=== PATIENT | female | born 1990 | race Caucasian/White ===

== ENCOUNTER 2018-06-28 21:25 | Emergency (ER) | payer OTHER ==
[2018-06-28 21:40] VITALS: BMI 20.2
[2018-06-28] MEDS ORDERED: SODIUM CHLORIDE 0.9% 500 ML INFUS.BAG IV ONE (21:49)
[2018-06-28] MEDS ORDERED: MORPHINE SULFATE 2 MG/ML VIAL IVPUSH ONE (21:49)
[2018-06-28] MEDS ORDERED: morphine CARPU-JECT 2 MG/1 ML DISP.SYRIN IVPUSH ONE (21:49)
[2018-06-28] MEDS ORDERED: MORPHINE SULFATE 2 MG/ML VIAL ONE ×3 (21:50→23:50)
--- NOTE | 2018-06-28 21:54 | PDOC ---
History of Present Illness - General History Source: Patient Exam Limitations: No Limitations - History of Present Illness Initial Comments: 06/28/18 22:17 The patient is a 28 year old 7 weeks female, with no significant past medical history, who presents to the emergency department with, 3 hours of vaginal bleeding. As per patient, she received IVF and has been experiencing vaginal bleeding and suprapubic discomfort. She took Tylenol, without relief prompting her visit to the ER. She denies recent fevers, chills, headache or dizziness. She denies recent diarrhea or constipation. She denies recent dysuria, frequency, urgency or hematuria. She denies recent chest pain or shortness of breath. Past surgical history: None reported. Social history: Nonsmoker. Denies EtOH use and recreational drug use. Blood Type: O- <Sergio Moreno - Last Filed: 06/28/18 22:57> <Shaista Shay - Last Filed: 06/29/18 01:40> - General Chief Complaint: Vaginal Bleeding Stated Complaint: ABDOMINAL PAIN 7 WEEKS Time Seen by Provider: 06/28/18 21:43 Past History <Sergio Moreno - Last Filed: 06/28/18 22:57> - Suicide/Smoking/Psychosocial Hx Smoking History: Never smoked Have you smoked in the past 12 months: No Information on smoking cessation initiated: No Hx Alcohol Use: No Drug/Substance Use Hx: No <Shaista Shay - Last Filed: 06/29/18 01:40> - Past Medical History Allergies/Adverse Reactions: Allergies Allergy/AdvReac Type Severity Reaction Status Date / Time No Known Allergies Allergy Verified 06/28/18 22:08 Home Medications: Ambulatory Orders Ibuprofen [Motrin -] 600 mg PO TID #30 tablet 06/29/18 Oxycodone HCl/Acetaminophen [Percocet 5-325 mg Tablet] 1 tab PO Q6H #20 tablet MDD 4 06/29/18 Review of Systems - Review of Systems Able to Perform ROS?: Yes Comments:: 06/28/18 22:17 GENERAL/CONSTITUTIONAL: No fever or chills. No weakness. HEAD, EYES, EARS, NOSE AND THROAT: No change in vision. No ear pain or discharge. No sore throat. CARDIOVASCULAR: No chest pain or shortness of breath. RESPIRATORY: No cough, wheezing, or hemoptysis. GASTROINTESTINAL: No nausea, vomiting, diarrhea or constipation. +GENITOURINARY: Vaginal bleeding. Pelvic discomfort. No dysuria, frequency, or change in urination. MUSCULOSKELETAL: No joint or muscle swelling or pain. No neck or back pain. SKIN: No rash NEUROLOGIC: No headache, vertigo, loss of consciousness, or change in strength/ sensation. ENDOCRINE: No increased thirst. No abnormal weight change. HEMATOLOGIC/LYMPHATIC: No anemia, easy bleeding, or history of blood clots. ALLERGIC/IMMUNOLOGIC: No hives or skin allergy. All Other Systems: Reviewed and Negative <Sergio Moreno - Last Filed: 06/28/18 22:57> *Physical Exam - Vital Signs Last Vital Signs Temp Pulse Resp BP Pulse Ox 99.1 F 91 H 18 116/86 100 06/28/18 21:36 06/28/18 21:36 06/28/18 21:36 06/28/18 21:36 06/28/18 21:36 - Physical Exam Comments: 06/28/18 22:18 GENERAL: Awake, alert, and fully oriented, in no acute distress HEAD: No signs of trauma EYES: PERRLA, EOMI, sclera anicteric, conjunctiva clear ENT: Auricles normal inspection, hearing grossly normal, nares patent, oropharynx clear without exudates. Moist mucosa NECK: Normal ROM, supple, no lymphadenopathy, JVD, or masses LUNGS: Breath sounds equal, clear to auscultation bilaterally. No wheezes, and no crackles HEART: Regular rate and rhythm, normal S1 and S2, no murmurs, rubs or gallops ABDOMEN: Suprapubic discomfort. Soft, normoactive bowel sounds. No guarding, no rebound. No masses EXTREMITIES: Normal range of motion, no edema. No clubbing or cyanosis. No cords, erythema, or tenderness NEUROLOGICAL: Cranial nerves II through XII grossly intact. Normal speech, normal gait SKIN: Warm, Dry, normal turgor, no rashes or lesions noted. <Sergio Moreno - Last Filed: 06/28/18 22:57> - Vital Signs Last Vital Signs Temp Pulse Resp BP Pulse Ox 99.1 F 91 H 18 116/86 100 06/28/18 21:36 06/28/18 21:36 06/28/18 21:36 06/28/18 21:36 06/28/18 21:36 <Shaista Shay - Last Filed: 06/29/18 01:40> Moderate Sedation - Procedure Monitoring Vital Signs: Procedure Monitoring Vital Signs Temperature 99.1 F 06/28/18 21:36 Pulse Rate 91 H 06/28/18 21:36 Respiratory Rate 18 06/28/18 21:36 Blood Pressure 116/86 06/28/18 21:36 O2 Sat by Pulse Oximetry (%) 100 06/28/18 21:36 <Sergio Moreno - Last Filed: 06/28/18 22:57> - Procedure Monitoring Vital Signs: Procedure Monitoring Vital Signs Temperature 99.1 F 06/28/18 21:36 Pulse Rate 91 H 06/28/18 21:36 Respiratory Rate 18 06/28/18 21:36 Blood Pressure 116/86 06/28/18 21:36 O2 Sat by Pulse Oximetry (%) 100 06/28/18 21:36 <Shaista Shay - Last Filed: 06/29/18 01:40> ED Treatment Course - LABORATORY CBC & Chemistry Diagram: 06/28/18 21:50 06/28/18 21:50 - ADDITIONAL ORDERS Additional order review: Laboratory Results 06/28/18 21:50 PT with INR 12.30 INR 1.04 06/28/18 21:50 RBC 3.89 MCV 94.2 MCHC 32.9 RDW 14.3 MPV 7.5 Neutrophils % 63.1 Lymphocytes % 25.7 Monocytes % 9.4 Eosinophils % 1.4 Basophils % 0.4 - Medications Given in the ED: ED Medications Discontinued Medications Generic Name Dose Route Start Last Admin Trade Name Freq PRN Reason Stop Dose Admin Morphine Sulfate 2 mg 06/28/18 21:49 06/28/18 22:09 Morphine Injection - IVPUSH 06/28/18 21:50 2 mg ONCE ONE Administration Sodium Chloride 1,000 ml 06/28/18 21:49 06/28/18 22:09 Normal Saline - IV 06/28/18 21:50 1,000 ml ONCE ONE Administration <Sergio Moreno - Last Filed: 06/28/18 22:57> - LABORATORY CBC & Chemistry Diagram: 06/28/18 21:50 12/23/18 21:50 - RADIOLOGY Radiology Studies Ordered: Category Date Time Status <14WKS US [US] Stat Ultrasound 06/28/18 21:53 Ordered <Shaista Shay - Last Filed: 06/29/18 01:40> Medical Decision Making - Medical Decision Making 06/28/18 23:58 Patient Name: ELICEO VALE THIS IS A PRELIMINARY REPORT FROM [facility] DATE OF SERVICE: 2018-06-28 22:14:59 IMAGES: 63 EXAM: US <14WKS US HISTORY: Threatened COMPARISON: None. FINDINGS: Uterus measures 10.4 cm in length. Endometrium is thickened and heterogeneous. There is an irregularly contoured gestational sac measuring 8 x 6 x 16 mm. This correlates to an estimated gestational age of 5 weeks and 4 days. No anatomy or cardiac activity is identified. There is no adnexal mass or free pelvic fluid IMPRESSION: Single empty gestational sac with irregular contours. Finding may reflect early gestational age, or an abnormal gestational sac. Correlation with clinical dates and beta hCG levels is recommended THIS DOCUMENT HAS BEEN ELECTRONICALLY SIGNED 06/29/18 00:27 Pt tells me now that she had a sono 2 weeks ago that showed a 7 week gestation; 2 days later the babies were being lost; pt bled a bit and she was given rhogam. The docs gave her the option of having pills to speed the miscarriage; but she refused. At the time, she was given Rhogam. Now with more bleeding. Last Bhcg was 22K. Now 16K. Pt comes with pain. Morphine 2mg x 2 given. 06/29/18 00:34 Spoke to b2b sales consultant FAST FOOD SHIFT SUPERVISOR Stephan, who recommends NSAIDS and f/u with IVF doctor. Rho abdiaziz was ordered and pending <Shaista Shay - Last Filed: 06/29/18 01:40> *DC/Admit/Observation/Transfer - Attestations Scribe Attestion: 06/28/18 22:18 Documentation prepared by Sergio Moreno, acting as medical stenographer for Shaista Shay MD. <Sergio Moreno - Last Filed: 06/28/18 22:57> - Discharge Dispostion Decision to Admit order: No <Shaista Shay - Last Filed: 06/29/18 01:40> Diagnosis at time of Disposition: Miscarriage, Rh negative status during - Discharge Dispostion Disposition: HOME Condition at time of disposition: Stable - Prescriptions Prescriptions: Ibuprofen [Motrin -] 600 mg PO TID #30 tablet Oxycodone HCl/Acetaminophen [Percocet 5-325 mg Tablet] 1 tab PO Q6H #20 tablet MDD 4 - Patient Instructions Printed Discharge Instructions: DI for Miscarriage
[2018-06-28 22:04] LABS: BASO % 0.4 % (0-2.0); EOS % 1.4 % (0-4.5); HEMATOCRIT 36.7 % (32.4-45.2); HEMOGLOBIN 12.1 GM/dL (10.7-15.3); LYMPH % 25.7 % (8-40); MCHC 32.9 g/dl (32.0-36.0); MEAN CELL VOLUME 94.2 fl (80-96); MEAN PLT VOLUME 7.5 fl (7.5-11.1); MONO % 9.4 % (3.8-10.2); NEUT % 63.1 % (42.8-82.8); PLATELET COUNT 297 K/MM3 (134-434); RBC 3.89 M/mm3 (3.60-5.2); RDW 14.3 % (11.6-15.6); WHITE BLOOD COUNT 9.5 K/mm3 (4.0-10.0)
[2018-06-28 22:15] LABS: INR 1.04 (0.83-1.09); PROTHROMBIN TIME (PATIENT) 12.3 SEC (9.7-13.0)
[2018-06-28 22:44] LABS: ALBUMIN 3.8 g/dl (3.4-5.0); ALK PHOS 59 U/L (45-117); ANION GAP 6 MMOL/L (8-16); BILIRUBIN,TOTAL 0.2 mg/dL (0.2-1); BLOOD UREA NITROGEN 7 mg/dL (7-18); CALCIUM 8.5 mg/dL (8.5-10.1); CHLORIDE 105 mmol/L (98-107); CO2 25 mmol/L (21-32); CREATININE 0.6 mg/dL (0.55-1.3); GLUCOSE,RANDOM 90 mg/dL (74-106); POTASSIUM 4.4 mmol/L (3.5-5.1); SGOT/AST 28 U/L (15-37); SGPT/ALT 34 U/L (13-61); SODIUM 136 mmol/L (136-145); TOT PROT 7.8 g/dl (6.4-8.2)
[2018-06-28] MEDS ORDERED: RHO(D) IMMUNE GLOBULIN 1,500 UNIT DISP.SYRIN IM ONE (23:59)
[2018-06-29] MEDS ORDERED: morphine CARPU-JECT 2 MG/1 ML DISP.SYRIN IVPUSH ONE ×2 (00:18→11:30)
[2018-06-29] MEDS ORDERED: MORPHINE SULFATE 2 MG/ML VIAL IVPUSH ONE (00:30)
[2018-06-29] MEDS ORDERED: KETOROLAC TROMETHAMINE 30 MG/1 ML VIAL IVPUSH ONE (00:32)
[2018-06-29] MEDS ORDERED: KETOROLAC TROMETHAMINE 30 MG/1 ML VIAL ONE (00:39)
[2018-06-29] MEDS ORDERED: ACETAMINOPHEN 1000 MG/100 ML VIAL (NON FORMULARY) IVPB ONE (01:36)
[2018-06-29] MEDS ORDERED: ACETAMINOPHEN INJECTION 100 ML IVPB ONE (01:47)
[2018-06-29 02:00] VITALS: BP 95/55; PULSE 85; TEMP 98.1
== END 2018-06-29 02:09 | disposition home or self-care (01) ==
LOC: JER 21:25
PROC: 3E0234Z Introduction of Serum, Toxoid and Vaccine into Muscle, Percutaneous Approach (ICD-10-PCS; principal; 2018-06-28)
PROC: 3E033NZ Introduction of Analgesics, Hypnotics, Sedatives into Peripheral Vein, Percutaneous Approach (ICD-10-PCS; 2018-06-28)
PROC: 3E033NZ Introduction of Analgesics, Hypnotics, Sedatives into Peripheral Vein, Percutaneous Approach (ICD-10-PCS; 2018-06-28)
PROC: 3E033NZ Introduction of Analgesics, Hypnotics, Sedatives into Peripheral Vein, Percutaneous Approach (ICD-10-PCS; 2018-06-28)
PROC: 3E033NZ Introduction of Analgesics, Hypnotics, Sedatives into Peripheral Vein, Percutaneous Approach (ICD-10-PCS; 2018-06-28)
PROC: 3E0333Z Introduction of Anti-inflammatory into Peripheral Vein, Percutaneous Approach (ICD-10-PCS; 2018-06-28)
DX: O26.891 Other specified pregnancy related conditions, first trimester (principal); O02.1 Missed abortion; O36.0910 Maternal care for other rhesus isoimmunization, first trimester, not applicable or unspecified; Z3A.01 Less than 8 weeks gestation of pregnancy
CPT/HCPCS: 36415; 76801-TC; 76817-TC; 80053; 84702; 85025; 85610; 86850; 86870; 86900; 86901; 86902; 86999; 99282-25; J0131; J1561

== ENCOUNTER 2019-07-03 09:43 | Inpatient (IN) | payer OTHER ==
[2019-07-03] MEDS ORDERED: SODIUM CHLORIDE 2,041 ML IV ONE (09:57)
[2019-07-03] MEDS ORDERED: ACETAMINOPHEN 1000 MG/100 ML VIAL (NON FORMULARY) IVPB ONE (09:59)
[2019-07-03] MEDS ORDERED: ACETAMINOPHEN INJECTION 100 ML IVPB ONE ×2 (10:19→17:26)
[2019-07-03] MEDS ORDERED: ONDANSETRON 4 MG/2 ML VIAL IVPUSH ONE (10:24)
[2019-07-03] MEDS ORDERED: morphine CARPU-JECT 4 MG/1 ML DISP.SYRIN IVPUSH ONE (10:24)
[2019-07-03 10:27] LABS: VENOUS PC02 42.9 mmHg (38-52); VENOUS PH 7.37 (7.31-7.41)
--- NOTE | 2019-07-03 10:29 | PDOC ---
Documentation entered by Bubba Yo SCRIBE, acting as scribe for Radha Robles MD. Radha Robles MD: This documentation has been prepared by the Srinath terrell Xhesika, SCRIBE, under my direction and personally reviewed by me in its entirety. I confirm that the documentation accurately reflects all work, treatment, procedures, and medical decision making performed by me. History of Present Illness - General Chief Complaint: SIRS, Suspected/Possible Stated Complaint: ABD PAIN Time Seen by Provider: 07/03/19 10:07 History Source: Patient Exam Limitations: No Limitations - History of Present Illness Initial Comments: 07/03/19 10:33 HPI The patient is a 29 year old female, with a PMH of UTI (most recent a few months ago), peritonitis s/p colon resection and SBO who presents to the ED with 3 days of abdominal pain, back pain, and high fever, worsened today. Pt reports nausea, headache, dizziness and watery dairrhea (x 1 episode, self resolved) yesterday. Pt describes her abdominal pain as 20/10 in severity, RLQ >LLQ, radiating to her R lower back, worsened with deep breathing and walking. Pt notes she has been drinking fluids and eating soups, but decreased appetite. Pt notes she has been taking acetaminophen with no relief of symptoms, last dose yesterday. Pt reports her LMP was 06/08/19, usually normal menses, no dysuria/urgency or frequency. Denies chest pain, SOB, palpitation,weakness, V, bladder and bowel problems, focal weakness/paresthesias, leg swelling/pain, rash. No sick contacts or travel. No new changes in medications. No suspicious food intake Allergies: None Past Medical History/PSH: UTI (most recent a few months ago), peritonitis and SBO, bowel resection. Social history: Lives with family. No tobacco, ETOH or drug use. Meds: none Review of systems Constitutional: + fevers. No chills. +decreased appetite, +generalized weakness HEENT: + headache +dizziness. No congestion. No visual/hearing disturbances. CVS: no cp or syncope. Resp: no sob. No cough. Gastrointestinal: + abdominal pain,+ nausea, + diarrhea. +flank pain. No vomiting Genitourinary: no urinary sx, hematuria. no urgency or frequency. no dysuria, no vaginal bleeding or discharge. MUSCULOSKELETAL: No joint pain and swelling. No neck pain. +back pain. SKIN: no redness or skin changes, no discharge, no rash. No wounds. Hematologic: no easy bruising/bleeding. NEUROLOGIC: No headache, dizziness, LOC or altered mental status. No weakness, numbness or tingling. Psych: no anxiety or depression Allergic/Immunologic: no allergies All other systems reviewed and negative, or as documented in HPI. Physical exam General: Malaised appearing. HEENT: NCAT, PERRL, EOMI, clear conjunctiva, anicteric, dry mucus membranes, clear oropharynx, no oral lesions.. Neck: neck supple, FROM Resp: CTAB, normal and even respirations, no respiratory distress CVS: +tachycardic, no murmurs, 2+ peripheral pulses throughout, no peripheral edema Abdomen: +midline vertical surgical scar. + RLQ abdominal tenderness at Mcburney 's point. + R flank tenderness. + R CVA tenderness. + rovsing's sign. +guarding ; no rebound. Neg Lamb's sign Back: + R flank tenderness. + R CVA tenderness. no midline tenderness. : normal external genitalia, no lesions, clear vaginal vault with clear physiologic discharge, no CMT, no adnexal tenderness. Smooth and pink cervix, closed. MSK: no edema, DONOHUE x4, ROM intact. No clubbing or cyanosis. normal bulk and tone. Extremities: no calf tenderness Neuro: alert Psych: Calm and cooperative Skin: warm and well perfused, cap refill <2 sec, normal color, no rash, very warm to palp 07/03/19 11:34 07/03/19 12:27 Past History - Past Medical History Allergies/Adverse Reactions: Allergies Allergy/AdvReac Type Severity Reaction Status Date / Time No Known Allergies Allergy Verified 07/03/19 09:47 Home Medications: Ambulatory Orders NK [No Known Home Medication] 07/03/19 COPD: No Thyroid Disease: No - Immunization History TDAP Vaccination: Yes Immunization Up to Date: Yes - Psycho Social/Smoking Cessation Hx Smoking History: Never smoked Have you smoked in the past 12 months: No Hx Alcohol Use: No Drug/Substance Use Hx: No *Physical Exam - Vital Signs Last Vital Signs Temp Pulse Resp BP Pulse Ox 102.6 F H 118 H 20 110/56 L 100 07/03/19 09:49 07/03/19 10:18 07/03/19 10:18 07/03/19 10:18 07/03/19 10:18 Heart Score/ECG Review #1 ECG reviewed & interpreted by me at: 10:30 General ECG Interpretation: Sinus Rhythm, Normal Intervals 07/03/19 11:35 sinus tachycardia at 112 bpm, normal intervals, normal axis, no st elevations or depressins. ED Treatment Course - LABORATORY CBC & Chemistry Diagram: 07/03/19 10:07 07/03/19 10:07 - RADIOLOGY Radiology Studies Ordered: Category Date Time Status ABDOMEN & PELVIS CT WITH CONTR [CT] Stat CT Scan 07/03/19 10:25 Ordered - Medications Given in the ED: ED Medications Discontinued Medications Generic Name Dose Route Start Last Admin Trade Name Freq PRN Reason Stop Dose Admin Acetaminophen 1,000 mg 07/03/19 09:59 07/03/19 10:23 Ofirmev Injection - IVPB 07/03/19 10:00 1,000 mg ONCE ONE Administration Medical Decision Making - Critical Care Time Total Critical Care Time (minutes): 60 (sepsis, pyelonephritis) Critical Care Statement: The care of this patient involved high complexity decision making to prevent further life threatening deterioration of the patient 's condition and/or to evaluate & treat vital organ system(s) failure or risk of failure. - Medical Decision Making 07/03/19 10:27 Vital Signs Temp Pulse Resp BP Pulse Ox 102.6 F H 118 H 20 110/56 L 100 07/03/19 09:49 07/03/19 10:18 07/03/19 10:18 07/03/19 10:18 07/03/19 10:18 VS with high fever, tachy; normotensive DDx abdominal pain: Renal colic, biliary colic, metabolic/electrolyte derangements. GERD, PUD, esophageal spasm, pancreatitis, hepatitis, constipation , colitis, gastroenteritis, cholecystitis, UTI, pyelonephritis, ileus, SBO, medication side effect, hernia, appendicitis, diverticulitis, mesenteric ischemia. msk strain, mesenteric adenitis, psoas abscess. perforation. abscess. Abdominal pain NEG: No evidence of pancreatitis, AAA, cholecystitis, choledocholithiasis, cholangitis, mesenteric ischemia, small bowel obstruction, diverticulitis, colitis, appendicitis, or pelvic etiolology, sandra lantigua tear , fire sprinkler service technician issues such as ovarian torsion, TOA, or ectopic . Given medications in the ED: IVF, sepsis bolus, 2 liters. zofran, morphine and tylenol for fever. labs and lytes wnl. no wbc ct. LFTs/wnl. Cr function borderline, up to 1.4 likely from dehydration, getting IVF. lactic normal, reassuring, unlikely ischemic or severe sepsis. flu neg blood and urine cultures pending. 07/03/19 11:36 pelvic exam unremarkable, no sig discharge or odor. no tenderness. defer imaging , more appropriate for CT a/p given her RLQ pain with the exam PO contrast indicated given prior peritonitis/bowel resection, complications. 07/03/19 14:43 CT abdomen pelvis revealing 6mm obstructing calculus in the proximal right ureter with inflammatory changes extending to a retrocecal appendix. Unlikely acute appendicitis as this is more likely septic stone. There is also a left- sided adnexal cyst 6.5 cm, bedside is nontender on exam and pelvic exam. associated with TAMIKA and pyelonephritis IV ceftriaxone given, cultures pending Urology consultation with on-call physician, Dr Hernandez, will likely requiring stenting to relieve obstruction given TAMIKA and sepsis/pyelo, OR likely for 7pm, so will call nursing dock supervisor to arrange for OR prep VS improving, defervescing, pain controlled. appropriate for med/surg bed, as she is improving, soft BP (but otherwise healthy, thin, getting hydration and no longer tachy/febrile) admit to hospitalist for acute pyelonephritis/septic stone, IV hydration, fluids , abx, f/u cultures. s/o to Dr Licea, admitting to Dr Lundberg pt and family made aware of impression and plan, agreeable. 07/03/19 15:06 07/03/19 17:26 07/03/19 17:27 Discharge - Discharge Information Problems reviewed: Yes Clinical Impression/Diagnosis: Calculus of proximal right ureter, TAMIKA (acute kidney injury), Pyelonephritis Sepsis Qualifiers: Sepsis type: sepsis due to unspecified organism Sepsis acute organ dysfunction status: unspecified Qualified Code(s): A41.9 - Sepsis, unspecified organism Condition: Guarded - Admission Yes - Follow up/Referral Referrals: ON STAFF,NOT [Primary Care Provider] - - Patient Discharge Instructions - Post Discharge Activity
[2019-07-03] MEDS ORDERED: morphine SULFATE 4 MG/ML VIAL ONE (10:34)
[2019-07-03] MEDS ORDERED: ONDANSETRON 4 MG/2 ML VIAL ONE (10:35)
[2019-07-03 10:36] LABS: BASO % 0.1 % (0-2.0); HEMATOCRIT 37.2 % (32.4-45.2); HEMOGLOBIN 12.3 GM/dL (10.7-15.3); LYMPH % 8.7 % (8-40); MCH 31.4 pg (25.7-33.7); MONO % 9.8 % (3.8-10.2); NEUT % 81.4 % (42.8-82.8); PLATELET COUNT 178 K/MM3 (134-434); RBC 3.92 M/mm3 (3.60-5.2)
[2019-07-03 10:56] LABS: INR 1.42 (0.83-1.09); PROTHROMBIN TIME (PATIENT) 16.8 SEC (9.7-13.0)
[2019-07-03 10:59] LABS: ACTIVATED PTT 34.5 SECONDS (25.2-36.5)
[2019-07-03 11:01] LABS: ALBUMIN 3.4 g/dl (3.4-5.0); BILIRUBIN,TOTAL 0.3 mg/dL (0.2-1); BLOOD UREA NITROGEN 12.8 mg/dL (7-18); CALCIUM 8.2 mg/dL (8.5-10.1); CREATININE 1.4 mg/dL (0.55-1.3); POTASSIUM 4.3 mmol/L (3.5-5.1); TOT PROT 7.3 g/dl (6.4-8.2)
[2019-07-03 11:02] LABS: VENOUS PO2 < 49 mmHg (28-48)
[2019-07-03] MEDS ORDERED: SODIUM CHLORIDE 0.9% 500 ML INFUS.BAG IV ONE (11:44)
[2019-07-03 12:57] LABS: EPI CELLS 9.4 /HPF (0-5/HPF); HYALINE CASTS 25 /lpf (0-8); PH,URINE 5.5 (5.0-8.0); URINE APPEARANCE CLOUDY; URINE BACTERIA 1.7 /hpf (NEGATIVE); URINE BILIRUBIN NEGATIVE (NEGATIVE); URINE COLOR YELLOW; URINE GLUCOSE (UA) NEGATIVE (NEGATIVE); URINE KETONE NEGATIVE (NEGATIVE); URINE LEUK ESTERASE TRACE (NEGATIVE); URINE NITRITE NEGATIVE (NEGATIVE); URINE PROTEIN 2+ (NEGATIVE); URINE RBC 4 /hpf (0-4); URINE UROBILINOGEN 0.2 mg/dL (0.2-1.0); URINE WBC 29 /hpf (0-5)
--- NOTE | 2019-07-03 13:28 | EKG ---
Test Reason : Blood Pressure : / mmHG Vent. Rate : 112 BPM Atrial Rate : 112 BPM P-R Int : 138 ms QRS Dur : 072 ms QT Int : 300 ms P-R-T Axes : 038 -02 040 degrees QTc Int : 409 ms SINUS TACHYCARDIA OTHERWISE NORMAL ECG NO PREVIOUS ECGS AVAILABLE Confirmed by MD LEAH, FRED ([id number]) on 07/03/2019 1:27:52 PM Referred By: Confirmed By:FRED LYNN MD
[2019-07-03] MEDS ORDERED: CEFTRIAXONE 1,000 MG in DEXTROSE 5%-WATER - 50 ML IVPB ONE (14:38)
[2019-07-03] MEDS ORDERED: LACTATED RINGERS SOLUTION 1,000 ML/1,000 ML INFUS.BAG IV SCH (14:45)
[2019-07-03] MEDS ORDERED: CEFTRIAXONE 1 GM/50 ML BAG ONE (14:52)
[2019-07-03] MEDS ORDERED: MORPHINE SULFATE 2 MG/ML VIAL IVPUSH PRN (16:08)
[2019-07-03] MEDS ORDERED: ACETAMINOPHEN 1000 MG/100 ML VIAL (NON FORMULARY) IVPB PRN (16:08)
--- NOTE | 2019-07-03 16:10 | HP ---
CHIEF COMPLAINT: Right lower quadrant/Back pain x 3 days PCP: Alexsander GILLIAM HISTORY OF PRESENT ILLNESS: Pt is a 29 y/o F with a significant past medical history of peritonitis, miscarriage (06/2019) and SBO who presented to [facility] due to severe RLQ abdominal pain and back pain. Pt endorses that her pain commenced 3 days ago while she was eating food. Pain is described as a "20/10" in severity, intermittent, and sharp in nature. Pt has never experienced this type of brennan in the past. Endorses vomiting, nausea, subjective fever, and decreased appetite. States she drinks a lot of water and does not consume a high salt diet. Denies history of nephrolithiasis. PMH Miscarriage 06/28/2019, 2 SBOs, Peritonitis Social: Denies T/A/D SurgHx- 3 abdominal surgeries for Peritonitis, and 2 SBO episodes FamHx- Mother with "chest Cancer. Denies any FH of kidney stones NKDA ER course was notable for: (1) Temp 100.8, BP 92/49 (2) 1 gm Ceftriaxone (3) CTAP--> 6 mm obstructing calculus proximal right ureter w/ inflammatory changes in right kidney HOME MEDICATIONS: Home Medications Medication Instructions Recorded NK [No Known Home Medication] 07/03/19 REVIEW OF SYSTEMS CONSTITUTIONAL: PRESENT: fever, chills, diaphoresis, malaise, loss of appetite, Absent: rhinorrhea, nasal congestion, throat pain, throat swelling, difficulty swallowing, mouth swelling, ear pain, eye pain, visual changes CARDIOVASCULAR: Absent: chest pain, syncope, palpitations, irregular heart rate, lightheadedness , peripheral edema RESPIRATORY: Absent: cough, shortness of breath, dyspnea with exertion, orthopnea, wheezing, stridor, hemoptysis GASTROINTESTINAL: Absent: abdominal pain, abdominal distension, nausea, vomiting, diarrhea, constipation, melena, hematochezia GENITOURINARY: Absent: dysuria, frequency, urgency, hesitancy, hematuria, flank pain, genital pain MUSCULOSKELETAL: PRESENT: back pain SKIN: Absent: rash, itching, pallor HEMATOLOGIC/IMMUNOLOGIC: Absent: easy bleeding, easy bruising, lymphadenopathy, frequent infections ENDOCRINE: Absent: unexplained weight gain, unexplained weight loss, heat intolerance, cold intolerance NEUROLOGIC: Absent: headache, focal weakness or paresthesias, dizziness, unsteady gait, seizure, mental status changes, bladder or bowel incontinence PSYCHIATRIC: Absent: anxiety, depression, suicidal or homicidal ideation, hallucinations. PHYSICAL EXAMINATION Vital Signs - 24 hr 07/03/19 07/03/19 07/03/19 09:49 10:18 10:25 Temperature 102.6 F H Pulse Rate 132 H Pulse Rate [ 118 H Apical] Pulse Rate [ Left Brachial] Respiratory 26 H 20 Rate Blood Pressure 00/00 L Blood Pressure [Left Arm] Blood Pressure 110/56 L [Right Arm] O2 Sat by Pulse 100 100 99 Oximetry (%) 07/03/19 07/03/19 07/03/19 10:31 11:44 12:24 Temperature 100.8 F H Pulse Rate 110 H Pulse Rate [ 98 H 92 H Apical] Pulse Rate [ Left Brachial] Respiratory 20 19 Rate Blood Pressure Blood Pressure 92/49 L [Left Arm] Blood Pressure 95/30 L [Right Arm] O2 Sat by Pulse 100 99 99 Oximetry (%) 07/03/19 07/03/19 07/03/19 13:47 13:50 14:45 Temperature Pulse Rate Pulse Rate [ Apical] Pulse Rate [ 91 H 90 Left Brachial] Respiratory 22 H 18 Rate Blood Pressure Blood Pressure 98/52 L 94/54 L [Left Arm] Blood Pressure [Right Arm] O2 Sat by Pulse 99 99 100 Oximetry (%) 07/03/19 14:59 Temperature 98.6 F Pulse Rate Pulse Rate [ Apical] Pulse Rate [ Left Brachial] Respiratory Rate Blood Pressure Blood Pressure [Left Arm] Blood Pressure [Right Arm] O2 Sat by Pulse Oximetry (%) GENERAL: NAD HEAD: AT/NC EYES: EOMI Sclera Clear EARS, NOSE, THROAT: MMM NECK:Supple. LUNGS: CTAB HEART: RRR S1S2 ABDOMEN: No guarding or rigidity. Abdominal tenderness to deep palpation. . MUSCULOSKELETAL: ++ Right sided CVA tenderness. LOWER EXTREMITIES: No CCE. NEUROLOGICAL: Cranial nerves II-XII intact. PSYCHIATRIC: Cooperative. Good eye contact. Appropriate mood and affect. SKIN: Warm, dry, normal turgor, no rashes or lesions noted, normal capillary refill. Laboratory Results - last 24 hr 07/03/19 07/03/19 07/03/19 10:07 10:07 10:07 WBC RBC Hgb Hct MCV MCH MCHC RDW Plt Count MPV Absolute Neuts (auto) Neutrophils % Lymphocytes % Monocytes % Eosinophils % Basophils % Nucleated RBC % PT with INR 16.80 H INR 1.42 H PTT (Actin FS) 34.5 VBG pH POC VBG pCO2 POC VBG pO2 VBG HCO3 VBG O2 Sat (Juliano) VBG Base Excess Sodium Potassium Chloride Carbon Dioxide Anion Gap BUN Creatinine Est GFR (CKD-EPI)AfAm Est GFR (CKD-EPI)NonAf Random Glucose Lactic Acid Calcium Total Bilirubin AST ALT Alkaline Phosphatase Creatine Kinase Troponin I < 0.02 Total Protein Albumin Urine Color Urine Appearance Urine pH Ur Specific [place] Urine Protein Urine Glucose (UA) Urine Ketones Urine Blood Urine Nitrite Urine Bilirubin Urine Urobilinogen Ur Leukocyte Esterase Urine WBC (Auto) Urine RBC (Auto) Urine Casts (Auto) U Epithel Cells (Auto) Urine Bacteria (Auto) Urine HCG, Qual Influenza A (Rapid) Negative Influenza B (Rapid) Negative Blood Type Antibody Screen 07/03/19 07/03/19 07/03/19 10:07 10:07 10:07 WBC 10.0 RBC 3.92 Hgb 12.3 Hct 37.2 MCV 95.0 MCH 31.4 MCHC 33.0 RDW 15.0 Plt Count 178 D MPV 9.0 D Absolute Neuts (auto) 8.1 H Neutrophils % 81.4 D Lymphocytes % 8.7 D Monocytes % 9.8 Eosinophils % 0.0 D Basophils % 0.1 Nucleated RBC % 0 PT with INR INR PTT (Actin FS) VBG pH POC VBG pCO2 POC VBG pO2 VBG HCO3 VBG O2 Sat (Juliano) VBG Base Excess Sodium 136 Potassium 4.3 Chloride 106 Carbon Dioxide 24 Anion Gap 7 L BUN 12.8 Creatinine 1.4 H Est GFR (CKD-EPI)AfAm 58.70 Est GFR (CKD-EPI)NonAf 50.65 Random Glucose 112 H Lactic Acid Calcium 8.2 L Total Bilirubin 0.3 AST 69 H ALT 88 H Alkaline Phosphatase 72 Creatine Kinase 77 Troponin I Total Protein 7.3 Albumin 3.4 Urine Color Urine Appearance Urine pH Ur Specific [place] Urine Protein Urine Glucose (UA) Urine Ketones Urine Blood Urine Nitrite Urine Bilirubin Urine Urobilinogen Ur Leukocyte Esterase Urine WBC (Auto) Urine RBC (Auto) Urine Casts (Auto) U Epithel Cells (Auto) Urine Bacteria (Auto) Urine HCG, Qual Influenza A (Rapid) Influenza B (Rapid) Blood Type Antibody Screen 07/03/19 07/03/19 07/03/19 10:07 10:07 10:07 WBC RBC Hgb Hct MCV MCH MCHC RDW Plt Count MPV Absolute Neuts (auto) Neutrophils % Lymphocytes % Monocytes % Eosinophils % Basophils % Nucleated RBC % PT with INR INR PTT (Actin FS) VBG pH 7.37 POC VBG pCO2 42.9 POC VBG pO2 < 49 H VBG HCO3 24.1 VBG O2 Sat (Juliano) 32.1 L VBG Base Excess -0.7 Sodium Potassium Chloride Carbon Dioxide Anion Gap BUN Creatinine Est GFR (CKD-EPI)AfAm Est GFR (CKD-EPI)NonAf Random Glucose Lactic Acid 1.6 Calcium Total Bilirubin AST ALT Alkaline Phosphatase Creatine Kinase Troponin I Total Protein Albumin Urine Color Urine Appearance Urine pH Ur Specific [place] Urine Protein Urine Glucose (UA) Urine Ketones Urine Blood Urine Nitrite Urine Bilirubin Urine Urobilinogen Ur Leukocyte Esterase Urine WBC (Auto) Urine RBC (Auto) Urine Casts (Auto) U Epithel Cells (Auto) Urine Bacteria (Auto) Urine HCG, Qual Influenza A (Rapid) Influenza B (Rapid) Blood Type O NEGATIVE Antibody Screen Negative 07/03/19 07/03/19 07/03/19 11:45 11:45 13:59 WBC RBC Hgb Hct MCV MCH MCHC RDW Plt Count MPV Absolute Neuts (auto) Neutrophils % Lymphocytes % Monocytes % Eosinophils % Basophils % Nucleated RBC % PT with INR INR PTT (Actin FS) VBG pH POC VBG pCO2 POC VBG pO2 VBG HCO3 VBG O2 Sat (Juliano) VBG Base Excess Sodium Potassium Chloride Carbon Dioxide Anion Gap BUN Creatinine Est GFR (CKD-EPI)AfAm Est GFR (CKD-EPI)NonAf Random Glucose Lactic Acid 0.9 Calcium Total Bilirubin AST ALT Alkaline Phosphatase Creatine Kinase Troponin I Total Protein Albumin Urine Color Yellow Urine Appearance Cloudy Urine pH 5.5 Ur Specific [place] 1.024 Urine Protein 2+ H Urine Glucose (UA) Negative Urine Ketones Negative Urine Blood Trace Urine Nitrite Negative Urine Bilirubin Negative Urine Urobilinogen 0.2 Ur Leukocyte Esterase Trace Urine WBC (Auto) 29 Urine RBC (Auto) 4 Urine Casts (Auto) 25 U Epithel Cells (Auto) 9.4 Urine Bacteria (Auto) 1.7 Urine HCG, Qual Negative Influenza A (Rapid) Influenza B (Rapid) Blood Type Antibody Screen ASSESSMENT/PLAN: Pt is a 29 y/o F with a significant past medical history of peritonitis and SBO who presented to [facility] due to severe RLQ abdominal pain and back pain. #Sepsis 2/2 Urinary Tract Infection/Stone CTAP--> 6 mm obstructing calculus proximal right ureter with inflammatory changes of the right kidney extending to the retrocecal appendix. Not typical appearance of acute appendicitis but cannot be excluded. most likely these are secondary signs of inflammation. 6.5 cm left adenxal cyst. - BP 92/49, 100.8, with known source of infection. WBC slightly elevated at 10. -Ceftriaxone 1 gm given in ED. Pt also received 2L NS. Will place on standing Ceftriaxone Daily until cultures are finalized. -Urology Consulted. Will take patient tonight for Ureteroscopy with possible Laser lithotripsy and stone basketing w/ stent placement. -Morphine 2 mg Q6H PRN with associated pain scale. Ofirmev for pain 1-5 as well as fever PRN -Will not add flomax at this juncture in light of hypotension and anticipated urological intervention -Urine Cx/Blood Cx -Would be best to received Urine culture after obstruction relieved via Urologist #TAMIKA -Bun/Cr 12.8/1.4 -Will place on standing NS @ 125cc. TAMIKA most likely from hypoperfusion 2/2 sepsis/poor PO intake #FEN -NS@125cc/hr -Monitor Electrolytes -NPO #DVT ppx -SCDs #Dispo -Med-Surg Visit type - Emergency Visit Emergency Visit: Yes Care time: The patient presented to the Emergency Department on the above date and was hospitalized for further evaluation of their emergent condition. - New Patient This patient is new to me today: Yes Date on this admission: 07/03/19 - Critical Care Critical Care patient: No ATTENDING PHYSICIAN STATEMENT I saw and evaluated the patient. I reviewed the resident's note and discussed the case with the resident. I agree with the resident's findings and plan as documented. SUBJECTIVE: OBJECTIVE: ASSESSMENT AND PLAN:
[2019-07-03] MEDS ORDERED: SODIUM CHLORIDE 1,000 ML IV SCH ×2 (16:15→17:29)
--- NOTE | 2019-07-03 17:03 | PN ---
Teaching Attending Note Name of Resident: Danilo Licea ATTENDING PHYSICIAN STATEMENT I saw and evaluated the patient. I reviewed the resident's note and discussed the case with the resident. I agree with the resident's findings and plan as documented. SUBJECTIVE: CC: fever, pain in abd and flank. HPI: 29 y/o lady with h/o peritonitis, SBO x 2, and 3 abdominal surgeries who presented with fever, abd and flank painx 3 days . she noticed intermittent pain in RLQ and LUQ, with radiation to the flank. she had subjective fevers but not measured. she had n/v and 5 watery BMs yesterday. lately pain is constant. OBJECTIVE: NAD, awake, oriented, pleasant. MMM, nl oropharynx Cv: RRR, no MRG, mild bulge in neck veins Lungs: CATB Abd: soft, ND, TTP in RLQ, And LUQ. No rebound tenderness or guarding . + R CVA tenderness. mid line surgical scar. Ext : no edema or erythema. Dp 2+ b/l Neuro: EOMI, round equal pupils, reactive to light. no facial droop, tongue and uvula ar mid line . strength 5/5 in upper andl ower extremities proximally and distally. Ct scan report reviewed. she has 6 mm obstructing stone in R ureter, and surrounding inflammation extending to the area around her appendix. EKG: sinus tachy.? L axis. no ST or TW changes. Qtc 407. ASSESSMENT AND PLAN: 29 y/o lady with h/o peritonitis, SBO x 2, and 3 abdominal surgeries who presented with fever, abd and flank pain x 3 days . she was found to be septic with UTI and obstructing ureteral stone. 1- Sepsis due to pyelonephritis with obstructing R ureteral stone. - this is a urological emergency. the patient is hemodynamically stable for now. her normal BP is in 90s. - case was d/w Dr. Hernandez by MIKAYLA Guadarrama. and to be contacted by our team. - given ceftriaxone . has no h/o UTI or resistant bacteria. cont with ceftriaxone as obstruction is to be relived today. - IVF. carefully as she has distended neck vessels, bu tno crackles , no SOB or CP , or any signs of heart failure - NPO - hold off DVT px - morphine for pain. - will obtain urine cx from post obstruction sample . to be requested from Dr. Hernandez - blood cx pending - stent placement is planned for this evening - patient is agreeable to sx. 2- TAMIKA: due to obstruction and UTI . - cont IVF and stent placement 3- slight transaminitis: likely due to the sepsis. will monitor 4- R adnexal cyst 6.5 cm : f/u as out pt 5- DVT Px : Scds. no Heparin for now .
[2019-07-03] MEDS ORDERED: MORPHINE SULFATE 2 MG/ML VIAL ONE (17:29)
[2019-07-03] MEDS ORDERED: MIDAZOLAM HCL 2 MG/2 ML SINGLE DOSE VIAL ONE (19:33)
[2019-07-03] MEDS ORDERED: PROPOFOL 20 ML ONE (20:07)
[2019-07-03] MEDS ORDERED: ONDANSETRON 4 MG/2 ML VIAL IVPUSH PRN ×2 (20:27→21:21)
[2019-07-03] MEDS ORDERED: LACTATED RINGERS SOLUTION 1,000 ML IV SCH (20:30)
[2019-07-03] MEDS: SODIUM CHLORIDE 1,000 ML IV SCH (21:30)
--- NOTE | 2019-07-03 22:46 | OP ---
DATE OF OPERATION: 07/03/2019 PREOPERATIVE DIAGNOSIS: Right ureteral stone with urosepsis. POSTOPERATIVE DIAGNOSIS: Right ureteral stone with urosepsis. PROCEDURE: Cystoscopy, right retrograde emplacement of right ureteral stent. ATTENDING SURGEON: Manish Hernandez MD [place] ARCHITECT: None. ANESTHESIA: General by LMA. DETAILS OF PROCEDURE: Patient brought into the operating room. Patient had received IV antibiotics in the emergency room. Timeout was performed. SCDs placed on the lower extremities. She was then carefully placed in lithotomy, prepped and draped in the usual sterile fashion. Fluoroscopy revealed evidence of an ileus, the film was not clearly seen. A 23-Ivorian cystoscope was passed through the urethra into the bladder. Bladder itself appeared edematous and consistent with the diagnosis of hemorrhagic cystitis. The right orifice was easily identified and intubated with a sensor wire. Dual- lumen catheter was then placed over the sensor wire and a retrograde performed. This revealed that there appeared to be an obstruction appropriate 2 cm distal to the right UPJ. Dual-lumen catheter was removed and a 6-Ivorian, 26 cm in length, double pigtail catheter was passed over the wire and positioned with the assistance of fluoroscopy such that the proximal end curled in the renal pelvis. As the wire was removed , the distal end was noted to curl in the bladder. A urine specimen had been obtained immediately when the cystoscope was inserted _. There were no complications. Patient tolerated the procedure well, left the OR stable, in satisfactory condition. MD SVETLANA RIZO/[id number] MTDD
[2019-07-04 01:39] VITALS: BMI 21.8
[2019-07-04] MEDS: SODIUM CHLORIDE 1,000 ML IV SCH ×2 (05:14→15:37)
[2019-07-04] MEDS ORDERED: ACETAMINOPHEN 325 MG TABLET (FP) PO ONE (05:52)
[2019-07-04 07:33] LABS: HEMATOCRIT 32.9 % (32.4-45.2); HEMOGLOBIN 10.8 GM/dL (10.7-15.3); LYMPH % 15.9 % (8-40); MCH 31.7 pg (25.7-33.7); MCHC 32.9 g/dl (32.0-36.0); MEAN CELL VOLUME 96.4 fl (80-96); MEAN PLT VOLUME 9.1 fl (7.5-11.1); MONO % 9.2 % (3.8-10.2); NEUT % 74.9 % (42.8-82.8); PLATELET COUNT 164 K/MM3 (134-434); RBC 3.41 M/mm3 (3.60-5.2); RDW 15.6 % (11.6-15.6); WHITE BLOOD COUNT 7.5 K/mm3 (4.0-10.0)
[2019-07-04 07:40] LABS: INR 1.27 (0.83-1.09)
[2019-07-04 07:43] LABS: ACTIVATED PTT 30.1 SECONDS (25.2-36.5)
[2019-07-04 08:00] LABS: ALBUMIN 2.5 g/dl (3.4-5.0); BILIRUBIN,TOTAL 0.8 mg/dL (0.2-1); BLOOD UREA NITROGEN 9.1 mg/dL (7-18); CALCIUM 7.6 mg/dL (8.5-10.1); CREATININE 0.7 mg/dL (0.55-1.3); MAGNESIUM 2.1 mg/dL (1.8-2.4); PHOSPHOROUS 2.8 mg/dL (2.5-4.9); POTASSIUM 4.6 mmol/L (3.5-5.1); TOT PROT 5.8 g/dl (6.4-8.2)
[2019-07-04] MEDS ORDERED: oxyCODONE HCL 5 MG TABLET PO PRN (09:13)
[2019-07-04] MEDS ORDERED: cefTRIAXone SODIUM 1 GM VIAL ONE (09:23)
[2019-07-04] MEDS ORDERED: DEXTROSE 5%-WATER - 50 ML IVPB ONE (09:23)
[2019-07-04] MEDS: CEFTRIAXONE 1 GM in DEXTROSE 5%-WATER - 50 ML IVPB SCH (09:24)
--- NOTE | 2019-07-04 10:06 | PN ---
Progress Note (short form) - Note Progress Note: Anesthesia post op POD#1 S/P Cysto and right ureteral stent under GA. Pat seen and examined. VSS. No apparent post anesthesia complications.
[2019-07-04] MEDS ORDERED: CEFTRIAXONE 1 GM in DEXTROSE 5%-WATER - 50 ML IVPB SCH (15:00)
[2019-07-04] MEDS ORDERED: CEFTRIAXONE 1 GM in DEXTROSE 5%-WATER - 50 ML IVPB ONE (15:00)
--- NOTE | 2019-07-04 15:14 | PN ---
Progress Note (short form) - Note Progress Note: Subjective: No fever or chills. has pain in RLQ. No N/V. feels better. No diarrhea . No SOB Objective: Vital Signs: Last Vital Signs Temp Pulse Resp BP Pulse Ox 97.4 F L 58 L 18 97/57 L 93 L 07/04/19 05:26 07/04/19 05:26 07/04/19 05:26 07/04/19 05:26 07/03/19 21:30 Laboratory Results - last 24 hr 07/03/19 07/04/19 07/04/19 11:45 06:23 06:23 WBC 7.5 RBC 3.41 L Hgb 10.8 Hct 32.9 MCV 96.4 H MCH 31.7 MCHC 32.9 RDW 15.6 Plt Count 164 MPV 9.1 Absolute Neuts (auto) 5.6 Neutrophils % 74.9 Lymphocytes % 15.9 D Monocytes % 9.2 Eosinophils % 0.0 Basophils % 0.0 Nucleated RBC % 0 PT with INR 15.00 H INR 1.27 H PTT (Actin FS) 30.1 Sodium Potassium Chloride Carbon Dioxide Anion Gap BUN Creatinine Est GFR (CKD-EPI)AfAm Est GFR (CKD-EPI)NonAf Random Glucose Calcium Phosphorus Magnesium Total Bilirubin AST ALT Alkaline Phosphatase Total Protein Albumin U Pathogenic Cast Auto None seen 07/04/19 06:23 WBC RBC Hgb Hct MCV MCH MCHC RDW Plt Count MPV Absolute Neuts (auto) Neutrophils % Lymphocytes % Monocytes % Eosinophils % Basophils % Nucleated RBC % PT with INR INR PTT (Actin FS) Sodium 140 Potassium 4.6 Chloride 113 H Carbon Dioxide 23 Anion Gap 5 L BUN 9.1 Creatinine 0.7 Est GFR (CKD-EPI)AfAm 135.70 Est GFR (CKD-EPI)NonAf 117.08 Random Glucose 105 Calcium 7.6 L Phosphorus 2.8 Magnesium 2.1 Total Bilirubin 0.8 AST 51 H ALT 86 H Alkaline Phosphatase 76 Total Protein 5.8 L Albumin 2.5 L U Pathogenic Cast Auto Physical Exam: NAD, awake, oriented, pleasant. MMM minimally bulging neck veins Cv: RRR, no MRG, mild bulge in neck veins Lungs: CATB Abd: soft, ND, TTP in RLQ. No rebound tenderness or guarding . Ext: no edema or erythema. Dp 2+ b/l ASSESSMENT AND PLAN: 29 y/o lady with h/o peritonitis, SBO x 2, and 3 abdominal surgeries who presented with fever, abd and flank pain x 3 days . she was found to be septic with UTI and obstructing ureteral stone. 1- Sepsis due to pyelonephritis with obstructing R ureteral stone. s/p stent placement - sepsis resolved. patient is clinically better - cont ceftriaxone day 2. - cont po oxycodone. increase frequency - urine cx with proteus. sensitivity is pending - follow U cx taken during cystoscopy - cont but decrease IVF - strain all urine - add flomax for now. - Inflammation around the retrocecal appendix are likely due to the urinary inflammation. Suspicion for appendicitis is low. will ask Surgical opinion 2- TAMIKA: due to obstruction and UTI. - resolved. - decrease rate of IVF. 3- Slight transaminitis: likely due to the sepsis. improved . monitor 4- R adnexal cyst 6.5 cm : f/u as out pt 5- DVT Px: Scds. start heparin sq Visit type - Emergency Visit Emergency Visit: Yes ED Registration Date: 07/03/19 Care time: The patient presented to the Emergency Department on the above date and was hospitalized for further evaluation of their emergent condition. - New Patient This patient is new to me today: No - Critical Care Critical Care patient: No
[2019-07-04] MEDS ORDERED: TAMSULOSIN HCL 0.4 MG CAP PO ONE (15:16)
[2019-07-04] MEDS: oxyCODONE HCL 5 MG TABLET PO PRN ×2 (15:36→22:05)
[2019-07-04] MEDS: DOCUSATE SODIUM 100 MG CAPSULE (FP) PO PRN (15:39)
[2019-07-05] MEDS: oxyCODONE HCL 5 MG TABLET PO PRN ×2 (06:25→10:49)
[2019-07-05] MEDS: SODIUM CHLORIDE 1,000 ML IV SCH ×2 (06:26→22:06)
[2019-07-05] MEDS: TAMSULOSIN HCL 0.4 MG CAP PO SCH (08:58)
[2019-07-05 09:27] LABS: ALBUMIN 2.6 g/dl (3.4-5.0); BILIRUBIN,DIRECT 0.1 mg/dL (0.0-0.2); BILIRUBIN,TOTAL 0.3 mg/dL (0.2-1); BLOOD UREA NITROGEN 8.4 mg/dL (7-18); CALCIUM 8.3 mg/dL (8.5-10.1); CREATININE 0.7 mg/dL (0.55-1.3); POTASSIUM 4.8 mmol/L (3.5-5.1); TOT PROT 6.2 g/dl (6.4-8.2)
[2019-07-05] MEDS ORDERED: cefTRIAXone SODIUM 1 GM VIAL ONE (09:42)
[2019-07-05] MEDS ORDERED: DEXTROSE 5%-WATER - 50 ML IVPB ONE (09:42)
[2019-07-05] MEDS: CEFTRIAXONE 1 GM in DEXTROSE 5%-WATER - 50 ML IVPB SCH (09:56)
[2019-07-05] MEDS ORDERED: MIDAZOLAM HCL 2 MG/2 ML SINGLE DOSE VIAL ONE (10:05)
[2019-07-05] MEDS ORDERED: ROCURONIUM BROMIDE 50 MG/5 ML SYRINGE ONE (10:26)
[2019-07-05] MEDS ORDERED: NEOSTIGMINE METHYLSULFATE 0.5 MG/ML - 10 ML MDV ONE (11:46)
--- NOTE | 2019-07-05 11:50 | PN ---
Teaching Attending Note Name of Resident: Ben Valdovinos ATTENDING PHYSICIAN STATEMENT I saw and evaluated the patient. I reviewed the resident's note and discussed the case with the resident. I agree with the resident's findings and plan as documented. SUBJECTIVE: No fever or chills. she feels worse than yesterday. she has pain in her R flank and R sided abd , 10/10 decreased to 8 after oxycodone. OBJECTIVE: NAD, awake, oriented, pleasant. MMM. Cv: RRR, no MRG, mild bulge in neck veins Lungs: CATB Abd: soft, slightly distended, TTP in RLQ, RUQ, and LLQ , and R CVA tenderness. has rebound tenderness in RLQ, + Rofsing. No guarding. Ext: no edema or erythema on upper or lower extremities. ASSESSMENT AND PLAN: 29 y/o lady with h/o peritonitis, SBO x 2, and 3 abdominal surgeries who presented with fever, abd and flank pain x 3 days . she was found to be septic with UTI and obstructing ureteral stone. 1- Sepsis due to pyelonephritis with obstructing R ureteral stone. s/p stent placement - continued and increased pain could be dueto the stent itself,stent complication ( like obstruction, migration, ...), ileus, or the presence of acute appendicitis. - add toradol - cont oxy - obtain KUB - Obtain renal US to evaluate for stent complications - cont flomax - strain all urines. - follow final urine cx ( proteus ) - Today abd exam has rebound tenderness in RLQ, and + Rofsing sign. Initially, suspicion for acute appendicitis was low, but today will evaluate more. Although US might not be helpful, due to retrocecal appendix and bowel gas, will try it first to save Aniyah extra radiation. Will take surgical opinion. cont Ceftriaxone and flagyl. 2- TAMIKA: due to obstruction and UTI. - resolved. - cont IVF. 3- Slight transaminitis: likely due to the sepsis. monitor 4- R adnexal cyst 6.5 cm : f/u as out pt 5- DVT Px: Scds. heparin SQ.
[2019-07-05] MEDS: KETOROLAC TROMETHAMINE 15 MG/ML VIAL IVPB SCH ×2 (13:38→22:04)
--- NOTE | 2019-07-05 14:19 | PN ---
Physical Exam: SUBJECTIVE: Patient seen and examined MIRACLE Endorses having small streaks of blood in urine. Having severe abdominal pain ~8 /10, in RLQ and back. Pt thinks her abd is bloated. Has minimal appetite. No diarrhea OBJECTIVE: Vital Signs Period Temp Pulse Resp BP Sys/Ayoub Pulse Ox Last 24 Hr 97.8 F-99.1 F 77-98 20-20 92-111/63-78 GENERAL: The patient is awake, alert, and fully oriented, in no acute distress. HEAD: NC/AT. No temporal wasting EYES: sclera anicteric, conjunctiva clear and w/o pallor. ENT: Ears normal, nares patent, oropharynx clear without exudates, moist mucous membranes. NECK: Trachea midline, full range of motion, supple. LUNGS: Breath sounds equal, clear to auscultation bilaterally, no wheezes, no crackles, no accessory muscle use. Breathing comfortably on RA HEART: Regular rate and rhythm, S1, S2 without murmur, rub or gallop. ABDOMEN: Well-healed midline surgical scar, well-healed lap-incisional scars. Soft, normoactive bowel sounds, mildly distended, TTP of RLQ. +McBurney's. + Rovsing's. +Psoas's sign. +CVA tenderness EXTREMITIES: 2+ pulses, warm, well-perfused, no edema. NEUROLOGICAL: Normal speech, gait not observed. PSYCH: Normal mood, normal affect. SKIN: Warm, dry, normal turgor, no rashes or lesions noted Laboratory Results - last 24 hr 07/05/19 07:45 Sodium 140 Potassium 4.8 Chloride 112 H Carbon Dioxide 24 Anion Gap 5 L BUN 8.4 Creatinine 0.7 Est GFR (CKD-EPI)AfAm 135.70 Est GFR (CKD-EPI)NonAf 117.08 Random Glucose 80 Calcium 8.3 L Total Bilirubin 0.3 Direct Bilirubin 0.1 AST 45 H ALT 102 H Alkaline Phosphatase 76 Total Protein 6.2 L Albumin 2.6 L Active Medications Generic Name Dose Route Start Last Admin Trade Name Freq PRN Reason Stop Dose Admin Docusate Sodium 100 mg 07/04/19 15:04 07/04/19 15:39 Colace - PO 100 mg BID PRN Administration CONSTIPATION Ceftriaxone Sodium 1 gm/ 50 mls @ 100 mls/hr 07/04/19 10:00 07/05/19 09:56 Dextrose IVPB 100 mls/hr DAILY CHERYL Administration Sodium Chloride 1,000 mls @ 75 mls/hr 07/04/19 15:16 07/05/19 06:26 Normal Saline - IV 75 mls/hr ASDIR CHERYL Administration Metronidazole 500 mg in 100 mls @ 100 mls/hr 07/04/19 16:08 07/05/19 10:48 Flagyl 500mg Premixed Ivpb - IVPB 100 mls/hr Q8H-IV CHERYL Administration Ketorolac Tromethamine 15 mg 07/05/19 12:00 07/05/19 13:38 Toradol Injection - IVPB 07/06/19 11:59 15 mg Q8H CHERYL Administration Ondansetron HCl 4 mg 07/03/19 21:21 Zofran Injection IVPUSH Q6H PRN NAUSEA AND/OR VOMITING Oxycodone HCl 5 mg 07/04/19 15:04 07/05/19 10:49 Roxicodone - PO 5 mg Q4H PRN Administration PAIN LEVEL 6-10 Tamsulosin HCl 0.4 mg 07/05/19 08:30 07/05/19 08:58 Flomax - PO 0.4 mg DAILY@0830 CHERYL Administration ASSESSMENT/PLAN: 29 y/o F with a significant past medical history of peritonitis, SBO, small bowel resection who presented to [facility] due to severe RLQ abdominal pain and back pain. Had initial Tmax 102.6F, HR 132, severe flank pain. Imaging suggesting obstructive 6mm calculus of proximal Right ureter w/ inflammation extending to the retrocecal appendix. Admitted for presumed infection nephrolithiasis. S/p cystocopy w/ double pigtail stent placement(David, ) #Sepsis 2/2 Urinary Tract Infection/Stone --resolved #Right ureteral stone --now s/p ureteral stenting > POD#2 Cystoscopy w/ ureteral stent placement > Tmax 102.6, HR 132 --> afeb, HD stable > CT AP(07/03/19): 6 mm obstructing calculus proximal right ureter with inflammatory changes of the right kidney extending to the retrocecal appendix. Not typical appearance of acute appendicitis but cannot be excluded. most likely these are secondary signs of inflammation. 6.5 cm left adenxal cyst. > UCX(07/03/19): Proteus --pending abx sensitivity > UCX(cystoscopy, 07/03/19): NGTD > BCX(07/03/19): NGTD - ED: s/p Ceftriaxone 1 gm - Abx Regimen: -- Ceftriaxone + Flagyl --Day 3 - Pain Regimen: -- oxycodone 5mg, ketololac(scheduled for 24hs) - Flomax --Day 1 #RLQ pain + inflammatory signs of appendix on CT A/P > CT A/P(07/03/19): inflamm of Right ureter extending to retrocecal appendix > US RUQ(07/05/19): failure to show distended tubular struct - Surgery(Lili) Consult: --agrees w/ Flagyl for empiric appendicitis coverage --doesn't think appendecitis --pt declined offer for interval appendectomy --interval CT A/P as outpt --pt declined offer for interval CT A/P #TAMIKA --likely 2/2 sepesis --resolving > Cr 1.4 --> 0.7 - gentle IVF #transaminitis --improving > AST/ALT : 69/88, 51/86 - cont to monitor #FEN - NS@75cc/hr - Regular Diet #DVT ppx - SCDs - SQH #Dispo - Med-Surg Visit type - Emergency Visit Emergency Visit: No - New Patient This patient is new to me today: No - Critical Care Critical Care patient: No ATTENDING PHYSICIAN STATEMENT I saw and evaluated the patient. I reviewed the resident's note and discussed the case with the resident. I agree with the resident's findings and plan as documented. SUBJECTIVE: OBJECTIVE: ASSESSMENT AND PLAN:
--- NOTE | 2019-07-05 14:32 | CONS ---
DATE OF CONSULTATION: 07/05/2019 REASON FOR CONSULTATION: Abnormal appendix. This is an inpatient consultation. BRIEF HISTORY: This is a 29-year-old female who was admitted to [facility] on July 03 for an obstructing kidney stone and fever. The patient was treated by the service with a stent placement. She had a CAT scan of her abdomen and pelvis, which showed inflammation around her kidney, which extended to a retrocecal appendix. The appendix was not noted to be enlarged. There were no masses noted, and the building repair maintenance supervisor opined that this was unlikely appendicitis and more likely inflammation coming from the kidney. Based on her CAT scan findings, request was made for a surgical evaluation. She was being treated on Rocephin antibiotic. At my request, Flagyl was added. She is currently hungry, and her fevers have resolved. PAST MEDICAL HISTORY: Significant for urinary tract infections. PAST SURGICAL HISTORY: Include an exploratory laparotomy. The patient states it was for peritonitis. She does not know why she had it. She later had a 2nd laparotomy for bowel obstruction from adhesions. In the history and physical, it is mentioned, a partial colectomy; however, the patient did not mention that. MEDICATIONS: She takes no medications. ALLERGIES: She has no known drug allergies. REVIEW OF SYSTEMS: General: Denies fatigue or malaise. Cardiac: Denies chest pain or palpitations. Respiratory: Denies shortness of breath or wheeze. Gastrointestinal: Currently, no nausea, no vomiting, no diarrhea. Genitourinary: Has flank pain. Musculoskeletal: Denies joint pain. Psychiatric: Denies anxiety, depression, or hearing voices. PHYSICAL EXAMINATION: General: This is a thin female in no distress. Vital Signs: She is currently afebrile. HEENT: Her head is normocephalic. Her sclerae anicteric. Neck: Supple. Chest: Clear. Abdomen: Soft, nontender. She has right flank tenderness. Extremities: No edema. LABORATORY: On review of her laboratory, her white blood cell count is 7.5 without a shift. On admission, it was 10 with a shift. Her urinalysis shows trace blood, trace leukocyte esterase, and urine bacteria is noted. She has a proteus species in her urine culture that has grown, and her blood cultures are negative to date. ASSESSMENT: This is a 29-year-old female with flank pain, flank tenderness, initial fever, obstructing stone seen on CAT scan with a stent placed by Urology. There are also inflammatory changes around the kidney, which extend to a retrocecal appendix. Clinically, this is periappendicitis, not acute appendicitis. PLAN: Patient is currently on Rocephin, which would probably treat appendicitis as well as urinary infection especially if you were to add Flagyl coverage. I recommend out of an abundance of caution to treat with Flagyl as well. Patient has been offered interval appendectomy on the slight chance that this was appendicitis, this would possibly prevent a recurrence. She declines. Since the appendix is not abnormal in size, there is little suspicion of there being an appendiceal neoplasm. The patient could also consider repeat CAT scan in 1 months' time to ensure the appendix is completely normal. I have offered to follow her and re-scan her in a month, but she declines that as well. She does not wish to take the additional risk of ionizing radiation in the very unlikely chance that this is appendicitis. At this point, we will place her back on a regular diet. She should be treated for the primary kidney issue. I do not believe she has appendicitis, and I am available for interval appendectomy or repeat imaging if the patient changes her mind; however, her options and her current choice to do no further workup is likely reasonable. DO DYLON PINA/[id number]
[2019-07-05] MEDS: DOCUSATE SODIUM 100 MG CAPSULE (FP) PO PRN (22:05)
[2019-07-05] MEDS: HEPARIN NA (PORCINE) 5,000 UNITS/ML 1ML VIAL SQ SCH (22:06)
[2019-07-06] MEDS: KETOROLAC TROMETHAMINE 15 MG/ML VIAL IVPB SCH (04:19)
[2019-07-06] MEDS: SODIUM CHLORIDE 1,000 ML IV SCH ×2 (04:20→18:41)
[2019-07-06] MEDS: HEPARIN NA (PORCINE) 5,000 UNITS/ML 1ML VIAL SQ SCH ×3 (06:56→22:00)
[2019-07-06 07:47] LABS: HEMATOCRIT 31.1 % (32.4-45.2); HEMOGLOBIN 10.4 GM/dL (10.7-15.3); MCH 31.5 pg (25.7-33.7); MCHC 33.3 g/dl (32.0-36.0); MEAN CELL VOLUME 94.4 fl (80-96); MEAN PLT VOLUME 8.7 fl (7.5-11.1); PLATELET COUNT 225 K/MM3 (134-434); RBC 3.29 M/mm3 (3.60-5.2); RDW 15.6 % (11.6-15.6); WHITE BLOOD COUNT 5.8 K/mm3 (4.0-10.0)
[2019-07-06 08:11] LABS: ALBUMIN 2.7 g/dl (3.4-5.0); BILIRUBIN,TOTAL 0.4 mg/dL (0.2-1); BLOOD UREA NITROGEN 8.7 mg/dL (7-18); CALCIUM 8.5 mg/dL (8.5-10.1); CREATININE 0.6 mg/dL (0.55-1.3); INR 1.13 (0.83-1.09); MAGNESIUM 1.6 mg/dL (1.8-2.4); PHOSPHOROUS 3.5 mg/dL (2.5-4.9); POTASSIUM 4.2 mmol/L (3.5-5.1); PROTHROMBIN TIME (PATIENT) 13.3 SEC (9.7-13.0); TOT PROT 6.4 g/dl (6.4-8.2)
[2019-07-06] MEDS: TAMSULOSIN HCL 0.4 MG CAP PO SCH (08:32)
[2019-07-06] MEDS ORDERED: DEXTROSE 5%-WATER - 50 ML IVPB ONE (09:28)
[2019-07-06] MEDS ORDERED: cefTRIAXone SODIUM 1 GM VIAL ONE (09:28)
[2019-07-06] MEDS: CEFTRIAXONE 1 GM in DEXTROSE 5%-WATER - 50 ML IVPB SCH (11:01)
[2019-07-06] MEDS: POLYETHYLENE GLYCOL 3350 119 GM BTL PO SCH (11:32)
--- NOTE | 2019-07-06 15:23 | CONS ---
DATE OF CONSULTATION: 07/06/2019 The patient was seen on the July 03, at which time she was brought to the OR for an obstructing stone and a history of fever. Since the stent was placed, the patient's temperature has trended to normal and her white count has come down, the most recent one being 5800. The patient seems comfortable. My suggestion would be that the patient can be discharged on an antibiotic appropriate for the proteus which grew out on her urine culture. She should be maintained on this for 10 days. I will arrange for outpatient evaluation for possible ureteroscopy and/or removal of the stent. No further intervention is warranted at this present time. MD SVETLANA RIZO/[id number]
[2019-07-06] MEDS ORDERED: KETOROLAC TROMETHAMINE 15 MG/ML VIAL IVPUSH PRN (16:45)
[2019-07-06] MEDS ORDERED: oxyCODONE HCL 5 MG TABLET PO PRN (16:46)
[2019-07-06] MEDS ORDERED: MAGNESIUM SULF 50% (8.12 MEQ/2 ML-1 GM VIAL) IVPB ONE (17:55)
--- NOTE | 2019-07-06 18:03 | PN ---
Teaching Attending Note Name of Resident: Ben Valdovinos ATTENDING PHYSICIAN STATEMENT I saw and evaluated the patient. I reviewed the resident's note and discussed the case with the resident. I agree with the resident's findings and plan as documented. SUBJECTIVE: seen around 11 am No fever or chills. Cont to have RLQ abd pain. No Nausea. no vomiting. OBJECTIVE: NAD, awake, oriented, pleasant. MMM. Cv: RRR, no MRG, mild bulge in neck veins Lungs: CATB Abd: soft, ND, TTP in RLQ, RUQ, and R CVA tenderness. has rebound tenderness in RLQ, + Rofsing. No guarding. Ext: no edema or erythema on upper or lower extremities. ASSESSMENT AND PLAN: 29 y/o lady with h/o peritonitis, SBO x 2, and 3 abdominal surgeries who presented with fever, abd and flank pain x 3 days . she was found to be septic with UTI and obstructing ureteral stone. 1- Sepsis due to pyelonephritis with obstructing R ureteral stone. s/p stent placement. - cont flomax - strain all urines. - follow final urine cx ( proteus ) - due to the initial CT finding ( edema around appendix) , and to the + Rofsing , and rebound tenderness . will get reepat CT of Abd/pelvis to evaluate appendix. patient agrees to be exposed to radiation again 2- TAMIKA: due to obstruction and UTI. - resolved. - can dc IVF in am 3- Slight transaminitis: likely due to the sepsis. monitor 4- R adnexal cyst 6.5 cm : f/u as out pt 5- DVT Px: Scds. heparin SQ. 7- replete Mg
--- NOTE | 2019-07-06 18:26 | PN ---
Physical Exam: SUBJECTIVE: Patient seen and examined NAEON. RLQ abd pain improved, thinks 5/10 from 8/10 yesterday. Thinks distension has improved. Has bright red blood in urine. Little appetite but tolerated ~50% breakfast. OBJECTIVE: Vital Signs Period Temp Pulse Resp BP Sys/Ayoub Pulse Ox Last 24 Hr 98.0 F-98.4 F 56-75 20-20 120-135/68-86 GENERAL: The patient is awake, alert, and fully oriented, in no acute distress. HEAD: NC/AT. No temporal wasting EYES: sclera anicteric, conjunctiva clear and w/o pallor. ENT: Ears normal, nares patent, oropharynx clear without exudates, moist mucous membranes. NECK: Trachea midline, full range of motion, supple. LUNGS: Breath sounds equal, clear to auscultation bilaterally, no wheezes, no crackles, no accessory muscle use. Breathing comfortably on RA HEART: Regular rate and rhythm, S1, S2 without murmur, rub or gallop. ABDOMEN: Well-healed midline surgical scar, well-healed lap-incisional scars. Soft, normoactive bowel sounds, nondistended, mild TTP of RLQ. -McBurney's. - Rovsing's. +Rebound. +CVA tenderness EXTREMITIES: 2+ pulses, warm, well-perfused, no edema. NEUROLOGICAL: Normal speech, gait not observed. PSYCH: Normal mood, normal affect. SKIN: Warm, dry, normal turgor, no rashes or lesions noted Laboratory Results - last 24 hr 07/06/19 07/06/19 07/06/19 06:41 06:41 06:41 WBC 5.8 RBC 3.29 L Hgb 10.4 L Hct 31.1 L MCV 94.4 MCH 31.5 MCHC 33.3 RDW 15.6 Plt Count 225 D MPV 8.7 PT with INR 13.30 H INR 1.13 H Sodium 141 Potassium 4.2 Chloride 109 H Carbon Dioxide 26 Anion Gap 6 L BUN 8.7 Creatinine 0.6 Est GFR (CKD-EPI)AfAm 142.76 Est GFR (CKD-EPI)NonAf 123.17 Random Glucose 84 Calcium 8.5 Phosphorus 3.5 Magnesium 1.6 L Total Bilirubin 0.4 AST 38 H ALT 89 H Alkaline Phosphatase 79 Total Protein 6.4 Albumin 2.7 L Active Medications Generic Name Dose Route Start Last Admin Trade Name Freq PRN Reason Stop Dose Admin Docusate Sodium 100 mg 07/04/19 15:04 07/05/19 22:05 Colace - PO 100 mg BID PRN Administration CONSTIPATION Heparin Sodium (Porcine) 5,000 unit 07/05/19 22:00 07/06/19 13:40 Heparin - SQ 5,000 unit TID CHERYL Administration Ceftriaxone Sodium 1 gm/ 50 mls @ 100 mls/hr 07/04/19 10:00 07/06/19 11:01 Dextrose IVPB 100 mls/hr DAILY CHERYL Administration Sodium Chloride 1,000 mls @ 75 mls/hr 07/04/19 15:16 07/06/19 04:20 Normal Saline - IV Not Given ASDIR CHERYL Metronidazole 500 mg in 100 mls @ 100 mls/hr 07/04/19 16:08 07/06/19 11:01 Flagyl 500mg Premixed Ivpb - IVPB 100 mls/hr Q8H-IV CHERYL Administration Ketorolac Tromethamine 15 mg 07/06/19 16:45 Toradol Injection - IVPUSH 07/11/19 16:44 Q6H PRN PAIN LEVEL 4 - 6 Ondansetron HCl 4 mg 07/03/19 21:21 Zofran Injection IVPUSH Q6H PRN NAUSEA AND/OR VOMITING Oxycodone HCl 5 mg 07/06/19 16:46 Roxicodone - PO Q4H PRN PAIN LEVEL 7 - 10 Polyethylene Glycol 17 gm 07/06/19 11:15 07/06/19 11:32 Miralax (For Daily Use) - PO 17 grams DAILY CHERYL Administration Senna 1 tab 07/06/19 22:00 Senna - PO HS CHERYL Tamsulosin HCl 0.4 mg 07/05/19 08:30 07/06/19 08:32 Flomax - PO 0.4 mg DAILY@0830 CHERYL Administration ASSESSMENT/PLAN: 29 y/o F with a significant past medical history of peritonitis, SBO, small bowel resection who presented to [facility] due to severe RLQ abdominal pain and back pain. Had initial Tmax 102.6F, HR 132, severe flank pain. Imaging suggesting obstructive 6mm calculus of proximal Right ureter w/ inflammation extending to the retrocecal appendix. Admitted for presumed infection nephrolithiasis. S/p cystocopy w/ double pigtail stent placement(David, ). Evaluated by Surg(Lili) for inflammation of appendicitis and retained PO contrast in appendix. Surg did not think contrast was significant, as the appendix has low excretory rate. CT A/P ordered to reevaluate for RLQ inflammation #Sepsis 2/2 Urinary Tract Infection/Stone --resolved #Right ureteral stone --now s/p ureteral stenting > POD#3 Cystoscopy w/ ureteral stent placement > Tmax 102.6, HR 132 --> afeb, HD stable > CT AP(07/03/19): 6 mm obstructing calculus proximal right ureter with inflammatory changes of the right kidney extending to the retrocecal appendix. Not typical appearance of acute appendicitis but cannot be excluded. most likely these are secondary signs of inflammation. 6.5 cm left adenxal cyst. > UCX(07/03/19): Proteus --pending abx sensitivity > UCX(cystoscopy, 07/03/19): NGTD > BCX(07/03/19): NGTD - ED: s/p Ceftriaxone 1 gm - Abx Regimen: -- Ceftriaxone + Flagyl --Day 4 - Pain Regimen: -- oxycodone 5mg PRN, ketololac PRN - Flomax --Day 2 - Urology(David) consulted: -- abx for UTI x10d #RLQ pain + inflammatory signs of appendix on CT A/P --pain improving > CT A/P(07/03/19): inflamm of Right ureter extending to retrocecal appendix > US RUQ(07/05/19): failure to show distended tubular struct > CT A/P(07/06/19) --read pending - Surgery(Lili) Consult: --agrees w/ Flagyl for empiric appendicitis coverage --doesn't think appendecitis --pt declined offer for interval appendectomy --interval CT A/P as outpt --pt declined offer for interval CT A/P #TAMIKA --likely 2/2 sepesis --resolving > Cr 1.4 --> 0.6 - gentle IVF #transaminitis --improving > AST/ALT : 69/88, 51/86, 38/89 - cont to monitor #FEN - NS@75cc/hr - Regular Diet #DVT ppx - SCDs - SQH #Dispo - Med-Surg Visit type - Emergency Visit Emergency Visit: No - New Patient This patient is new to me today: No - Critical Care Critical Care patient: No ATTENDING PHYSICIAN STATEMENT I saw and evaluated the patient. I reviewed the resident's note and discussed the case with the resident. I agree with the resident's findings and plan as documented. SUBJECTIVE: OBJECTIVE: ASSESSMENT AND PLAN:
[2019-07-06] MEDS ORDERED: SODIUM CHLORIDE 1,000 ML IV SCH (19:45)
[2019-07-06] MEDS ORDERED: SENNOSIDES 8.6MG TABLET (FP) PO SCH (22:00)
[2019-07-07] MEDS: HEPARIN NA (PORCINE) 5,000 UNITS/ML 1ML VIAL SQ SCH ×2 (05:52→14:00)
[2019-07-07 08:29] LABS: HEMATOCRIT 31.9 % (32.4-45.2); HEMOGLOBIN 10.6 GM/dL (10.7-15.3); MCH 31.1 pg (25.7-33.7); MCHC 33.2 g/dl (32.0-36.0); MEAN CELL VOLUME 93.8 fl (80-96); PLATELET COUNT 225 K/MM3 (134-434); RDW 15.2 % (11.6-15.6); WHITE BLOOD COUNT 5.5 K/mm3 (4.0-10.0)
[2019-07-07 08:57] LABS: ALBUMIN 2.8 g/dl (3.4-5.0); BILIRUBIN,TOTAL 0.4 mg/dL (0.2-1); CALCIUM 8.7 mg/dL (8.5-10.1); CREATININE 0.6 mg/dL (0.55-1.3); PHOSPHOROUS 4.2 mg/dL (2.5-4.9); POTASSIUM 4.6 mmol/L (3.5-5.1); TOT PROT 6.5 g/dl (6.4-8.2)
--- NOTE | 2019-07-07 09:05 | PN ---
Teaching Attending Note Name of Resident: Ben Valdovinos ATTENDING PHYSICIAN STATEMENT I saw and evaluated the patient. I reviewed the resident's note and discussed the case with the resident. I agree with the resident's findings and plan as documented. SUBJECTIVE: Patient is doing better with no acute distress, no further pain, no fever or chills. OBJECTIVE: Vital Signs Temperature 97.9 F 07/07/19 05:40 Pulse Rate 60 07/07/19 05:40 Respiratory Rate 20 07/07/19 05:40 Blood Pressure 110/70 07/07/19 05:40 O2 Sat by Pulse Oximetry (%) 98 07/05/19 09:00 GENERAL: The patient is awake, alert, and fully oriented, in no acute distress. HEAD: Normal with no signs of trauma. EYES: PERRL, extraocular movements intact, sclera anicteric, conjunctiva clear. ENT: Ears normal, oropharynx clear without exudates, moist mucous membranes. NECK: Trachea midline, full range of motion, supple. LUNGS: Breath sounds equal, clear to auscultation bilaterally, no wheezes, no crackles, no accessory muscle use. HEART: Regular rate and rhythm, S1, S2 without murmur, rub or gallop. ABDOMEN: Soft, Nt,ND, normoactive bowel sounds, no guarding, no rebound, no hepatosplenomegaly, no masses.No CVA tenderness. EXTREMITIES: 2+ pulses, warm, well-perfused, no edema. NEUROLOGICAL: Cranial nerves II through XII grossly intact. Normal speech, gait not observed. PSYCH: Normal mood, normal affect. SKIN: Warm, dry, normal turgor, no rashes or lesions noted CBCD WBC 5.5 K/mm3 (4.0-10.0) 07/07/19 07:31 RBC 3.40 M/mm3 (3.60-5.2) L 07/07/19 07:31 Hgb 10.6 GM/dL (10.7-15.3) L 07/07/19 07:31 Hct 31.9 % (32.4-45.2) L 07/07/19 07:31 MCV 93.8 fl (80-96) 07/07/19 07:31 MCHC 33.2 g/dl (32.0-36.0) 07/07/19 07:31 RDW 15.2 % (11.6-15.6) 07/07/19 07:31 Plt Count 225 K/MM3 (134-434) 07/07/19 07:31 MPV 9.0 fl (7.5-11.1) 07/07/19 07:31 CMP Sodium 138 mmol/L (136-145) 07/07/19 07:31 Potassium 4.6 mmol/L (3.5-5.1) 07/07/19 07:31 Chloride 106 mmol/L (98-107) 07/07/19 07:31 Carbon Dioxide 27 mmol/L (21-32) 07/07/19 07:31 Anion Gap 5 MMOL/L (8-16) L 07/07/19 07:31 BUN 9.0 mg/dL (7-18) 07/07/19 07:31 Creatinine 0.6 mg/dL (0.55-1.3) 07/07/19 07:31 Random Glucose 86 mg/dL (74-106) 07/07/19 07:31 Calcium 8.7 mg/dL (8.5-10.1) 07/07/19 07:31 Total Bilirubin 0.4 mg/dL (0.2-1) 07/07/19 07:31 AST 29 U/L (15-37) 07/07/19 07:31 ALT 79 U/L (13-61) H 07/07/19 07:31 Alkaline Phosphatase 77 U/L (45-117) 07/07/19 07:31 Total Protein 6.5 g/dl (6.4-8.2) 07/07/19 07:31 Albumin 2.8 g/dl (3.4-5.0) L 07/07/19 07:31 CARDIAC ENZYMES Creatine Kinase 77 U/L (26-192) 07/03/19 10:07 Troponin I < 0.02 ng/ml (0.00-0.05) 07/03/19 10:07 Current Medications Generic Name Dose Route Start Last Admin Trade Name Freq PRN Reason Stop Dose Admin Docusate Sodium 100 mg 07/04/19 15:04 07/05/19 22:05 Colace - PO 100 mg BID PRN Administration CONSTIPATION Heparin Sodium (Porcine) 5,000 unit 07/05/19 22:00 07/07/19 05:52 Heparin - SQ 5,000 unit TID CHERYL Administration Ceftriaxone Sodium 1 gm/ 50 mls @ 100 mls/hr 07/04/19 10:00 07/06/19 11:01 Dextrose IVPB 100 mls/hr DAILY CHERYL Administration Metronidazole 500 mg in 100 mls @ 100 mls/hr 07/04/19 16:08 07/07/19 01:32 Flagyl 500mg Premixed Ivpb - IVPB 100 mls/hr Q8H-IV CHERYL Administration Sodium Chloride 1,000 mls @ 42 mls/hr 07/06/19 19:45 07/06/19 19:51 Normal Saline - IV 42 mls/hr ASDIR CHERYL Administration Ketorolac Tromethamine 15 mg 07/06/19 16:45 Toradol Injection - IVPUSH 07/11/19 16:44 Q6H PRN PAIN LEVEL 4 - 6 Ondansetron HCl 4 mg 07/03/19 21:21 Zofran Injection IVPUSH Q6H PRN NAUSEA AND/OR VOMITING Oxycodone HCl 5 mg 07/06/19 16:46 07/06/19 22:04 Roxicodone - PO 5 mg Q4H PRN Administration PAIN LEVEL 7 - 10 Polyethylene Glycol 17 gm 07/06/19 11:15 07/06/19 11:32 Miralax (For Daily Use) - PO 17 grams DAILY CHERYL Administration Senna 1 tab 07/06/19 22:00 07/06/19 22:00 Senna - PO 1 tab HS CHERYL Administration Tamsulosin HCl 0.4 mg 07/05/19 08:30 07/06/19 08:32 Flomax - PO 0.4 mg DAILY@0830 CHERYL Administration Home Medications Medication Instructions Recorded NK [No Known Home Medication] 07/03/19 Home Medications Medication Instructions Recorded Acetaminophen 500 mg PO Q6H PRN #28 tablet 07/07/19 Cefuroxime Axetil [Ceftin -] 500 mg PO Q12H #10 tablet 07/07/19 Tamsulosin HCl [Flomax -] 0.4 mg PO DAILY@0830 #30 cap.er.24h 07/07/19 Microbiology 07/03/19 10:10 Blood - Peripheral Venous Blood Culture - Preliminary NO GROWTH OBTAINED AFTER 72 HOURS, INCUBATION TO CONTINUE FOR 2 DAYS. 07/03/19 10:07 Blood - Peripheral Venous Blood Culture - Preliminary NO GROWTH OBTAINED AFTER 72 HOURS, INCUBATION TO CONTINUE FOR 2 DAYS. 07/03/19 19:57 Urine - Urine, Via Cystoscope Urine Culture - Final NO GROWTH OBTAINED 07/03/19 11:45 Urine - Urine Clean Catch Urine Culture - Final Proteus Species ASSESSMENT AND PLAN: Patient is a 29yof with PMhx of peritonitis, SBO x 2, and 3 abdominal surgeries who presented with fever, abd and flank pain x 3 days . she was found to be septic with UTI and obstructing ureteral stone. # s/p Sepsis due to pyelonephritis with obstructing R ureteral stone. s/p stent placement. - cont flomax , strain all urines,final urine cx ( proteus ) will dc the patient on ceftin for 5 more days. follow with the urologist # TAMIKA: due to obstruction and UTI. resolved. # Slight transaminitis: likely due to the sepsis. monitor # R adnexal cyst 6.5 cm : f/u as out pt dc patient home.
[2019-07-07] MEDS ORDERED: cefTRIAXone SODIUM 1 GM VIAL ONE (09:15)
[2019-07-07] MEDS ORDERED: DEXTROSE 5%-WATER - 50 ML IVPB ONE (09:15)
[2019-07-07] MEDS: CEFTRIAXONE 1 GM in DEXTROSE 5%-WATER - 50 ML IVPB SCH (09:21)
[2019-07-07] MEDS: TAMSULOSIN HCL 0.4 MG CAP PO SCH (09:21)
[2019-07-07] MEDS: POLYETHYLENE GLYCOL 3350 119 GM BTL PO SCH (09:25)
--- NOTE | 2019-07-07 14:44 | DS ---
Physical Exam: SUBJECTIVE: Patient seen and examined OBJECTIVE: Vital Signs Period Temp Pulse Resp BP Sys/Ayoub Pulse Ox Last 24 Hr 97.4 F-99.3 F 60-73 20-20 106-112/66-71 PHYSICAL EXAM GENERAL: The patient is awake, alert, and fully oriented, in no acute distress. HEAD: NC/AT. No temporal wasting EYES: sclera anicteric, conjunctiva clear and w/o pallor. ENT: Ears normal, nares patent, oropharynx clear without exudates, moist mucous membranes. NECK: Trachea midline, full range of motion, supple. LUNGS: Breath sounds equal, clear to auscultation bilaterally, no wheezes, no crackles, no accessory muscle use. Breathing comfortably on RA HEART: Regular rate and rhythm, S1, S2 without murmur, rub or gallop. ABDOMEN: Well-healed midline surgical scar, well-healed lap-incisional scars. Soft, normoactive bowel sounds, nondistended, mild TTP of RLQ. -McBurney's. - Rovsing's. -Rebound. +CVA tenderness EXTREMITIES: 2+ pulses, warm, well-perfused, no edema. NEUROLOGICAL: Normal speech, gait not observed. PSYCH: Normal mood, normal affect. SKIN: Warm, dry, normal turgor, no rashes or lesions noted LABS Laboratory Results - last 24 hr 07/07/19 07/07/19 07:31 07:31 WBC 5.5 RBC 3.40 L Hgb 10.6 L Hct 31.9 L MCV 93.8 MCH 31.1 MCHC 33.2 RDW 15.2 Plt Count 225 MPV 9.0 Sodium 138 Potassium 4.6 Chloride 106 Carbon Dioxide 27 Anion Gap 5 L BUN 9.0 Creatinine 0.6 Est GFR (CKD-EPI)AfAm 142.76 Est GFR (CKD-EPI)NonAf 123.17 Random Glucose 86 Calcium 8.7 Phosphorus 4.2 Magnesium 2.0 Total Bilirubin 0.4 AST 29 ALT 79 H Alkaline Phosphatase 77 Total Protein 6.5 Albumin 2.8 L HOSPITAL COURSE: Date of Admission:07/03/19 Date of Discharge: 07/07/19 29 y/o F with a significant past medical history of peritonitis, SBO, small bowel resection who presented to [facility] due to severe RLQ abdominal pain and back pain. Had initial Tmax 102.6F, HR 132, severe flank pain. Imaging suggesting obstructive 6mm calculus of proximal Right ureter w/ inflammation extending to the retrocecal appendix. Admitted for presumed infection nephrolithiasis. S/p cystocopy w/ double pigtail stent placement(David, ). Started on Flomax. Evaluated by Surg(Lili) for inflammation of appendicitis and retained PO contrast in appendix. Surg did not think contrast was significant, as the appendix has low excretory rate w/ contrast possibly staying appendix for multiple months. CT A/P ordered to reevaluate for RLQ inflammation. Repeat CT negative for inflammation of the appendix, Left ovarian cyst appeared smaller(4.7 x3.7cm vs 6.5cm) from 4d prior. Received ceftriaxon+ flagyl x5d for urosepesis and empiric coverage for appendicitis. Mirco had proteus <10k CFU in the ED UCX. Cystoscopy urine sample NGTD. David(Uro) rec UTI abx x10d. Abd pain improved prior to discharge. Last oxycodone was >12hs prior to discharge. Tolerated regular diet. Mild blood in urine. Currently on menstrual cycle(1 week early). Stable for dc home. Minutes to complete discharge: 40 Discharge Summary Problems reviewed: Yes Reason For Visit: CALCULUS OF PROXIMAL RIGHT URETER, SEPSIS Current Active Problems TAMIKA (acute kidney injury) (Acute) Calculus of proximal right ureter (Acute) Pyelonephritis (Acute) Sepsis (Acute) Condition: Guarded - Instructions Diet, Activity, Other Instructions: You were evaluated in the hospital for severe Right-sided lower abdominal pain and Right back pain. CT imaging showed inflammation of kidney and an obstructing kidney stone. A urologist performed a cystoscopy and stent placement. You were started on a new medication to improve urine flow. The CT also noticed inflammation of the appendix. A surgeon was asked to evaluate and he did not feel like there was concern for an appendicitis. A follow-up CT showed that you did not have an appendicitis. You pain improved. Medications: - NEW medications: -- Tamsulosin[FLOMAX] 0.4mg taken once daily -- Cefuroxime[CEFTIN] 250mg taken twice a day, for 5 days -- acetaminophen 650mg, take every 6 hours as needed for pain Additional instructions: - please stay well hydrated, drink up to 8 glasses of water daily Please follow up with the physicians below within 1-2 weeks: - Urologist (Dr Hernandez): to discuss your ureteral stent care - Primary Care Physician: to discuss your recent hospitalization. Please get a CMP(Complete Metabolic Panel). --if you do not have a regular physician please feel free to come to our [facility]([address] [place] [address]; [phone]). Dr Ben Valdovinos is in the clinic on Friday afternoons. - Grocery Team Member(or referral to Dr Bob): to discuss your Left ovarian cyst Please seek immediate medical evaluation if you experience: - worsening bloody urine - worsening severe abdominal pain - nausea, vomiting, and inability to tolerate any food - fevers, chills Referrals: Daniel Lu MD [Staff Physician] - 1 Week (Please call the primary care Clinic and make appointment with Dr Ben Valdovinos in 1 week. ) Manish Hernandez MD [Staff Physician] - 1 Week Aaron Bob MD [Staff Physician] - - Home Medications Comprehensive Discharge Medication List: Ambulatory Orders Acetaminophen 500 mg PO Q6H PRN #28 tablet 07/07/19 Cefuroxime Axetil [Ceftin -] 500 mg PO Q12H #10 tablet 07/07/19 Tamsulosin HCl [Flomax -] 0.4 mg PO DAILY@0830 #30 cap.er.24h 07/07/19 This patient is new to me today: No Emergency Visit: No Critical Care patient: No - Discharge Referral Referred to [facility] Med [facility] No ATTENDING PHYSICIAN STATEMENT I saw and evaluated the patient. I reviewed the resident's note and discussed the case with the resident. I agree with the resident's findings and plan as documented. SUBJECTIVE: OBJECTIVE: ASSESSMENT AND PLAN:
[2019-07-07 15:25] VITALS: BP 113/68; PULSE 74; TEMP 97.5
--- NOTE | 2019-07-08 13:57 | PATH ---
Cytology Non-Gynecological Report Patient Name: TEREZA VALE [facility]. Rec. #: [id number] /Age/Gender: 1990 (Age: 29) / F Account: [id number] Location: [address] [place] [address]/[facility] Taken: 07/05/2019 Received: 07/05/2019 Reported: 07/08/2019 Physicians: Serg Licea M.D. Specimen(s) Received URINE VOIDED Clinical History Right flank pain, ureteral stone Final Diagnosis URINE FOR CYTOLOGY: SATISFACTORY FOR EVALUATION. NEGATIVE FOR HIGH GRADE UROTHELIAL CARCINOMA. RED BLOOD CELLS, NEUTROPHILS, SCATTERED UROTHELIAL CELLS AND SQUAMOUS EPITHELIAL CELLS PRESENT. Electronically Signed Marcel Alicea M.D. Gross Description Approximately 50cc of cloudy yellow fluid received fresh. One cytospin prepared.
== END 2019-07-07 15:15 | disposition home or self-care (01) | DRG 854 ==
LOC: JER 09:43 → JERBED 14:43 → J6S 21:37
PROVIDERS: ADMIT Internal Medicine; ATTEND Internal Medicine
PROC: BT1DZZZ Fluoroscopy of Right Kidney, Ureter and Bladder (ICD-10-PCS; 2019-07-03)
PROC: 0T768DZ Dilation of Right Ureter with Intraluminal Device, Via Natural or Artificial Opening Endoscopic (ICD-10-PCS; principal; 2019-07-03 19:00)
DX: A41.9 Sepsis, unspecified organism (principal); N17.9 Acute kidney failure, unspecified; N20.1 Calculus of ureter; N10 Acute pyelonephritis; R74.0 Nonspecific elevation of levels of transaminase and lactic acid dehydrogenase [LDH]; B96.4 Proteus (mirabilis) (morganii) as the cause of diseases classified elsewhere
CPT/HCPCS: 36415; 74018-TC-FY; 74177-TC; 76775-TC; 76856-TC; 80048; 80053; 80076; 81003; 82550; 82803; 83605; 83735; 84100; 84484; 84703; 85025; 85027; 85610; 85730; 86850; 86900; 86901; 87040; 87086; 87186; 87804; 93005; 93010; 94010; 94760; 99285-25; J0131; J1644; J7030; Q9967

== ENCOUNTER 2021-03-06 12:15 | Emergency (ER) | payer OTHER ==
[2021-03-06 12:22] VITALS: BMI 24.1
[2021-03-06] MEDS ORDERED: KETOROLAC TROMETHAMINE 30 MG/1 ML VIAL IVPUSH ONE (12:42)
[2021-03-06] MEDS ORDERED: SODIUM CHLORIDE 1,000 ML IV STA (12:42)
[2021-03-06] MEDS ORDERED: KETOROLAC TROMETHAMINE 30 MG/1 ML VIAL ONE (12:48)
[2021-03-06 13:10] LABS: BASO % 0.5 % (0-2.0); EOS % 1.4 % (0-4.5); HEMATOCRIT 36.3 % (32.4-45.2); HEMOGLOBIN 12.6 GM/dL (10.7-15.3); LYMPH % 28.6 % (8-40); MCH 32.7 pg (25.7-33.7); MCHC 34.8 g/dl (32.0-36.0); MEAN CELL VOLUME 94.1 fl (80-96); MEAN PLT VOLUME 7.9 fl (7.5-11.1); MONO % 8.4 % (3.8-10.2); NEUT % 61.1 % (42.8-82.8); PLATELET COUNT 241 10^3/uL (134-434); RBC 3.86 M/mm3 (3.60-5.2); RDW 14.9 % (11.6-15.6); WHITE BLOOD COUNT 9.2 K/mm3 (4.0-10.0)
[2021-03-06 13:45] LABS: CHLORIDE 106 mmol/L (98-107); SODIUM 137 mmol/L (136-145)
[2021-03-06 13:47] LABS: ANION GAP 6 MMOL/L (8-16); BLOOD UREA NITROGEN 11.9 mg/dL (7-18); CO2 25 mmol/L (21-32)
[2021-03-06 13:48] LABS: GLUCOSE,RANDOM 81 mg/dL (74-106); LIPASE 67 U/L (73-393)
[2021-03-06 13:49] LABS: EPI CELLS >36 /uL (0-25.1); HYALINE CASTS 1 /uL (0-3.1); URINE APPEARANCE CLEAR; URINE BACTERIA 624 /uL (0-1359); URINE BILIRUBIN NEGATIVE (NEGATIVE); URINE COLOR YELLOW; URINE GLUCOSE (UA) NEGATIVE (NEGATIVE); URINE KETONE NEGATIVE (NEGATIVE); URINE LEUK ESTERASE TRACE (NEGATIVE); URINE NITRITE NEGATIVE (NEGATIVE); URINE PROTEIN NEGATIVE (NEGATIVE); URINE RBC 2 /uL (0-23.9); URINE WBC 14 /uL (0-25.8)
[2021-03-06 13:51] LABS: CREATININE 0.6 mg/dL (0.55-1.3); SGPT/ALT 43 U/L (13-61)
[2021-03-06 13:52] LABS: TOT PROT 7.6 g/dl (6.4-8.2)
[2021-03-06 13:53] LABS: ALK PHOS 72 U/L (45-117)
[2021-03-06 13:58] LABS: ALBUMIN 3.6 g/dl (3.4-5.0); BILIRUBIN,TOTAL 0.3 mg/dL (0.2-1); SGOT/AST 32 U/L (15-37)
[2021-03-06 19:02] VITALS: BP 128/78; PULSE 78; TEMP 98
== END 2021-03-06 19:01 | disposition home or self-care (01) ==
LOC: JER 12:15
PROC: 3E0333Z Introduction of Anti-inflammatory into Peripheral Vein, Percutaneous Approach (ICD-10-PCS; principal; 2021-03-06)
PROC: 3E0337Z Introduction of Electrolytic and Water Balance Substance into Peripheral Vein, Percutaneous Approach (ICD-10-PCS; 2021-03-06)
DX: R10.31 Right lower quadrant pain (principal)
CPT/HCPCS: 36415; 74177-TC; 76830-TC; 80053; 81003; 83690; 84702; 85025; 87086; 99285-25; C9803; U0003; U0005

== ENCOUNTER 2022-01-21 17:46 | Emergency (ER) | payer OTHER ==
[2022-01-21 18:06] VITALS: BP 114/67; PULSE 82; TEMP 98.1; BMI 23.7
[2022-01-21] MEDS ORDERED: PHENAZOPYRIDINE HCL 100 MG TABLET (FP) PO ONE (20:56)
[2022-01-21] MEDS ORDERED: KETOROLAC TROMETHAMINE 15 MG/ML VIAL IVPUSH ONE (20:56)
[2022-01-21] MEDS ORDERED: PHENAZOPYRIDINE HCL 100 MG TABLET (FP) ONE (21:07)
[2022-01-21] MEDS ORDERED: KETOROLAC TROMETHAMINE 15 MG/ML VIAL ONE (21:08)
[2022-01-21 21:31] LABS: BASO % 0.2 % (0-2.0); EOS % 2.2 % (0-4.5); HEMATOCRIT 37.9 % (32.4-45.2); HEMOGLOBIN 12.6 GM/dL (10.7-15.3); LYMPH % 39.9 % (8-40); MCH 30.6 pg (25.7-33.7); MCHC 33.2 g/dl (32.0-36.0); MEAN PLT VOLUME 8.2 fl (7.5-11.1); MONO % 13.5 % (3.8-10.2); NEUT % 44.2 % (42.8-82.8); PLATELET COUNT 244 10^3/uL (134-434); RBC 4.12 M/mm3 (3.60-5.2); RDW 15.7 % (11.6-15.6); WHITE BLOOD COUNT 7.9 K/mm3 (4.0-10.0)
[2022-01-21 21:33] LABS: EPI CELLS >36 /uL (0-25.1); HYALINE CASTS 1 /uL (0-3.1); PH,URINE 7.5 (5.0-8.0); URINE APPEARANCE TURBID; URINE BACTERIA 270 /uL (0-1359); URINE BILIRUBIN NEGATIVE (NEGATIVE); URINE COLOR YELLOW; URINE GLUCOSE (UA) NEGATIVE (NEGATIVE); URINE KETONE NEGATIVE (NEGATIVE); URINE LEUK ESTERASE 2+ (NEGATIVE); URINE NITRITE NEGATIVE (NEGATIVE); URINE PROTEIN NEGATIVE (NEGATIVE); URINE RBC 5 /uL (0-23.9); URINE WBC 19 /uL (0-25.8)
[2022-01-21 21:44] LABS: CALCIUM 8.6 mg/dL (8.5-10.1)
[2022-01-21 21:45] LABS: ALBUMIN 3.6 g/dl (3.4-5.0); BLOOD UREA NITROGEN 17.3 mg/dL (7-18)
[2022-01-21 21:48] LABS: CREATININE 0.6 mg/dL (0.55-1.3)
[2022-01-21 21:50] LABS: BILIRUBIN,TOTAL 0.2 mg/dL (0.2-1); TOT PROT 7.3 g/dl (6.4-8.2)
[2022-01-22] MEDS ORDERED: CEPHALEXIN MONOHYDRATE 500 MG CAPSULE (UD) PO ONE (00:33)
[2022-01-22] MEDS ORDERED: CEPHALEXIN MONOHYDRATE 500 MG CAPSULE (UD) ONE ×2 (00:50→00:54)
== END 2022-01-22 00:58 | disposition home or self-care (01) ==
LOC: JER 17:46
PROC: 3E0333Z Introduction of Anti-inflammatory into Peripheral Vein, Percutaneous Approach (ICD-10-PCS; principal; 2022-01-21)
DX: N83.201 Unspecified ovarian cyst, right side (principal); N83.202 Unspecified ovarian cyst, left side
CPT/HCPCS: 36415; 74176-TC; 76830-TC; 80053; 81003; 84703; 85025; 87086; 99284-25